=== PATIENT | female | born 1965 | race African-American/Black ===

== ENCOUNTER 2019-02-11 01:09 | Inpatient (IN) | payer SELFPAY ==
--- NOTE | 2019-02-11 03:28 | HP ---
CHIEF COMPLAINT: Transfer from [facility] for possible intracerebral hemorrhage. HISTORY OF PRESENT ILLNESS: This patient is a 53-year-old female with a history of a right breast mass lesion that has been present apparently for at least 6 months. She presented in [place] on January 04 after her boyfriend noticed the lesion and convinced her to go. At that time, it was felt to likely be cancerous in nature given that it was a large open breast mass. The patient was seen by Dr. Alvarado and had a recommendation for outpatient followup for biopsy. The patient says she did have a biopsy about a week ago and was told it was likely cancer, but it is not clear to me if the actual pathology was reviewed with her. She was supposed to follow up next week in order to see Dr. Alvarado again. She reports that she has not been eating and drinking well over the last several days and she has been somewhat lethargic and her family had her go to the emergency department again because of those symptoms. Currently, she says she is generally comfortable, has no specific complaints. She had a CT scan performed at the emergency department in [place] of the chest, which shows progressive multifocal osseous metastatic disease with T9 vertebral body metastatic lesion most at risk for impending fracture. Confluent adenopathy of the right axilla which has progressed compared to previous images with adjacent tissue invasion, right supraclavicular metastatic adenopathy, right middle lobe pulmonary metastatic nodule, right adrenal gland mass, and others. She also had a CT of the head, which revealed diffuse osseous metastatic disease with dominant destructive right frontoparietal calvarial mass, adjacent geographic metastatic lesion to the right frontal skull is larger in size. There is multifocal intra-axial metastatic disease to include the lucy which now demonstrates peripheral hyperattenuation suspicious for small component of hemorrhagic transformation. The patient's labs were also notable for severe hypercalcemia at 14.8. She was given 2 L of IV fluids, Tylenol, Toradol, Zosyn and vancomycin for it was felt to be likely cellulitic changes around the right breast mass. She was also given fentanyl and zoledronic acid (Reclast) 5 mg IV. The patient was subsequently transferred to this facility for neurosurgical evaluation. Apparently, they have discussed this with her neurosurgery team here. Already, the plan is for hydration for them to assess the patient in the morning. Review of the records indicates that the patient actually presented there complaining of some generalized pain as reported that she had not been taking her pain medications. She does report some back pain presumably related to metastatic disease. There, her labs were notable for urinalysis with specific gravity 1.025, trace ketones, 3-9 white cells, 1-2 red cells, occasional bacteria. Blood cultures were obtained and are pending. Glucose was 102, potassium 3.4. LFTs were normal. Albumin 3.2. White count 26.0, hemoglobin 10.2, platelets 630. Lactic acid was 1.5. test negative. Coags normal. Troponin 0.03. Calcium level was 14.8. Currently again, the patient actually is generally without complaints. REVIEW OF SYSTEMS: Primarily notable for the poor appetite with poor p.o. intake of liquids or solids. She does admit to having some dizziness for which she was actually seen in the emergency department on January 26. All other systems reviewed, all pertinent positives and negatives noted in the history of present illness. 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 PAST SURGICAL HISTORY: None. FAMILY HISTORY: Mother had heart failure and hypertension. Father had cancer. SOCIAL HISTORY: The patient smokes half a pack of cigarettes per day for 20 years. She reports alcohol use. She drinks half of a six-pack daily. CURRENT MEDICATIONS: Home medications apparently are only [place] 10/325 q.4 hours p.r.n. PHYSICAL EXAMINATION: VITAL SIGNS: BP 130/96, pulse 118, respirations 19, temperature is 98.4, O2 saturation 95% on room air. GENERAL APPEARANCE: Age-appropriate female. She is in no distress. She is asleep but easily awaken, very pleasant, cooperative. HEENT: She has strabismus. Pupils are reactive and she has OP lesions. NECK: Supple and symmetric without lymphadenopathy, JVD, or bruits. She does have some supraclavicular lymphadenopathy on the right. HEART: Regular rate and rhythm without murmurs, gallops, or rubs. LUNGS: Clear to auscultation bilaterally with good chest wall expansion and air exchange. ABDOMEN: Soft, nontender, and nondistended. Positive bowel sounds. No masses. No organomegaly. EXTREMITIES: No cyanosis, clubbing, or edema. BREASTS: Reveal a very large right lateral lower breast mass which is necrotic and ulcerated and foul smelling, with mostly clear foul-smelling drainage noted. There is a lot of areas of tenderness associated with this. NEUROLOGIC: The patient appears to have very mild dysarthria. She has significant proximal muscle weakness on her right upper extremity, but fairly normal strength, otherwise. IMPRESSION AND PLAN: 1. Possible cellulitic changes and infection of the right breast mass with leukocytosis. The patient has received vancomycin and Zosyn in the emergency department. We will continue those for now. We will need Wound Care to see the lesion. It is unclear that she would benefit from any aggressive surgical intervention unless it is part of an overall treatment plan or other specific indications. 2. Brain metastases with possible intracerebral hemorrhage. Apparently, Neurosurgery indicated they did not specifically want steroids at this time, they will re-evaluate the patient in the morning. We will continue to hydrate. 3. Widely metastatic cancer of obvious breast source with mets to the lungs, the adrenals, the brain, spine, and multiple other sites. The patient has not established with Oncology at this time. Her paperwork indicates that she had been referred to [facility]. We will need to determine from the patient through the course of her stay where she would like to engage in oncology care. If that is here, we will engage our oncology team. 4. Hypercalcemia secondary to metastatic disease to the bone. We will hydrate again avoiding steroids and she has already had zoledronic acid administered. 5. Right upper extremity weakness, likely secondary to spinal metastatic disease. She may need specific C-spine MRI and possible radiation therapy. We will defer that to neurosurgery discretion as this could be directly related to the brain mets as well. 6. This patient is a full code and her mother would be her surrogate decision maker should that be necessary. Job ID: [id number]
[2019-02-11] MEDS: Sodium Chloride 0.9% 1,000 ML IV SCH ×3 (03:52→18:03)
[2019-02-11 04:23] VITALS: BMI 33.5
[2019-02-11] MEDS ORDERED: Vancomycin HCl 1 GM in Premix Bag 1 BAG IVPB SCH ×2 (04:30→06:00)
[2019-02-11] MEDS ORDERED: Piperacillin/Tazobactam 3.375 GM in Sodium Chloride 0.9% 100 ML IVPB SCH (04:30)
[2019-02-11 05:20] LABS: #Basophils 0.1 thou/uL (0.0-0.2); #Eosinphils 0.1 thou/uL (0.0-0.7); #Lymphocytes 2.2 thou/uL (1.20-3.40); #Monocytes 1.5 thou/uL (0.11-0.59); #Neutrophils 14.2 thou/uL (1.40-6.50); %Basophils 0.3 % (0.0-1.0); %Eosinophils 0.8 % (0.0-10.0); %Lymphocytes 12.2 % (21.0-51.0); %Neutrophils 78.7 % (42.0-75.0); Hemoglobin 8.3 g/dL (12.0-16.0); Mean Corpuscular HGB CONC 32.2 g/dL (32.0-36.0); Mean Platelet Volume 8.1 fL (7.4-10.4); Platelet Count 442 thou/uL (130-400); Red Blood Cell (RBC) Count 2.96 mill/uL (4.20-5.40)
[2019-02-11 05:39] LABS: ALT (SGPT) 7 U/L (8-55); AST (SGOT) 25 U/L (5-34); Albumin 2.3 g/dL (3.5-5.0); Alkaline Phosphatase 110 U/L (40-150); Anion Gap 11 mmol/L (10-20); BUN (Urea Nitrogen) 18 mg/dL (9.8-20.1); Bilirubin, Total 0.8 mg/dL (0.2-1.2); Calc. Creatinine Clearance 111 mL/min (70-130); Carbon Dioxide 23 mmol/L (22-29); Chloride 108 mmol/L (98-107); Estimated GFR-MDRD 90; Globulin 3.4 g/dL (2.4-3.5); Glucose 94 mg/dL (70-105); Potassium 3.1 mmol/L (3.5-5.1); Protein, Total 5.7 g/dL (6.0-8.3); Sodium 139 mmol/L (136-145)
[2019-02-11 05:41] LABS: Calcium 12.4 mg/dL (7.8-10.44)
[2019-02-11 06:19] LABS: Anion Gap 15 mmol/L (10-20); BUN (Urea Nitrogen) 18 mg/dL (9.8-20.1); Calc. Creatinine Clearance 116 mL/min (70-130); Carbon Dioxide 20 mmol/L (22-29); Chloride 108 mmol/L (98-107); Estimated GFR-MDRD Greater than 90; Glucose 77 mg/dL (70-105); Potassium 3.5 mmol/L (3.5-5.1); Sodium 139 mmol/L (136-145)
[2019-02-11 06:25] LABS: Calcium 12.3 mg/dL (7.8-10.44)
[2019-02-11] MEDS: Famotidine/PF 20 mg/2ml Vial SLOW IVP SCH ×2 (09:06→23:23)
[2019-02-11] MEDS: Piperacillin/Tazobactam 3.375 GM in Sodium Chloride 0.9% 100 ML IVPB SCH ×3 (11:33→23:25)
[2019-02-11] MEDS: Morphine 2 MG/ML SYRINGE SLOW IVP PRN ×2 (11:49→23:23)
--- NOTE | 2019-02-11 12:46 | PDOC.PALCO ---
Palliative Care Consult - Consult Details Requesting Physician: Dr Atwood Reason for Consult: complex decision-making Family Members Present: None - Pertinent HPI Ms Kuo is a 53 year old female who was diagnosed with that had a biopsy of a open wound to the right breast that is believed to be cancerous however patient has not been given the pathology report. Patient presented to the emergency department yesterday with altered mental status and increase in sleep pattern. CT in the emergency department in [place] revealed what is believed to be a progressive multifocal osseous metastatic disease. Cellulitis and UTI. Patient admitted for further evaluation. Palliative Care Team evaluated for Complex Decisions Making. - Pertinent PMH Hypertension, cataracts, chronic right eye blindness, obesity, cervical radiculopathy - Social History Smoking Status: Current every day smoker Smoking: cigarettes Alcohol Use: daily Drug Use History: none - Medications MAR Reviewed: Yes - Allergies Allergies/Adverse Reactions: Allergies Allergy/AdvReac Type Severity Reaction Status Date / Time No Known Drug Allergies Allergy Verified 02/11/19 03:16 - Subjective Paitent sleeping, easily arousable. Lethargic. Denies specific pain, reports limited movement and numbness to right hand/foot. ROS: all other systems negative as per patient - Objective Vital Signs: Vital Signs - Most Recent Temp Pulse Resp BP Pulse Ox 99.3 F 125 H 18 173/85 H 98 02/11/19 11:38 02/11/19 11:38 02/11/19 11:38 02/11/19 11:38 02/11/19 11:38 Palliative Performance Scale: 30 - Physical Exam Constitutional: confusion Respiratory: clear to auscultation bilateral, unlabored breathing Cardiovascular: RRR Deviation from normal: Tachycardia Gastrointestinal: soft, non-tender Musculoskeletal: no edema Deviation from normal: Decreased strength to right hand Deviation from normal: Decreased sensation to right extremities as per patietn Deviation from normal: Lethargic Deviation from normal: Open wound to right breast - Problem List (1) Palliative care encounter Code(s): Z51.5 - ENCOUNTER FOR PALLIATIVE CARE Current Visit: Yes Status: Acute - Plan/Recommendations Plan: Initiated conversation with patient in relation to Palliative Care and establish relationship. Our team will continue to follow as other disciplines provide information and disease progression/trajectory to Ms Kuo. [40] minutes spent on this encounter with >50% of the time in counseling and coordination of care. Thank you for this very appropriate consult.
--- NOTE | 2019-02-11 15:46 | PDOC.HOSPP ---
- Subjective Subjective: f/u for widely metastatic R breast cancer untreated to date. s/p R breast bx without formal path results. Pain improved. - Objective Vital Signs & Weight: Vital Signs (12 hours) Temp Pulse Resp BP Pulse Ox 02/11/19 12:47 114 H 18 149/74 H 02/11/19 11:38 99.3 F 125 H 18 173/85 H 98 02/11/19 09:00 97 02/11/19 07:59 99.8 F H 107 H 18 149/89 H 97 Weight Admit Weight 189 lb 3.2 oz Weight 189 lb 3.2 oz I&O: 02/10/19 02/11/19 02/12/19 06:59 06:59 06:59 Intake Total 550 120 Output Total 600 Balance -50 120 Result Diagrams: 02/11/19 04:54 02/11/19 05:59 Additional Labs: Laboratory Tests 02/11/19 04:54 Potassium 3.1 L Calcium 12.4 H* EKG Reviewed by me: Yes (Tele - Sinus tachycardia) ROS - Review of Systems All systems: All other ROS were reviewed and found negative. - Medication Medications: Active Medications Generic Name Dose Route Start Last Admin Trade Name Freq PRN Reason Stop Dose Admin Famotidine 20 mg 02/11/19 09:00 02/11/19 09:06 Pepcid SLOW IVP 20 mg Q12HR CHLOÉ Administration Piperacillin Sod/Tazobactam 100 mls @ 200 mls/hr 02/11/19 11:00 02/11/19 11: 33 Sod 3.375 gm/ Sodium Chloride IVPB 100 mls Q6H CHLOÉ Administration Sodium Chloride 1,000 mls @ 75 mls/hr 02/11/19 02:45 02/11/19 03:52 Normal Saline 0.9% IV 1,000 mls .[id number] CHLOÉ Administration Morphine Sulfate 2 mg 02/11/19 02:43 02/11/19 11:49 Morphine SLOW IVP 2 mg Q4H PRN Administration Moderate to Severe Pain (6-10) Sodium Chloride 10 ml 02/11/19 09:00 02/11/19 11:34 Flush - Normal Saline IVF 10 ml Q12HR CHLOÉ Administration - Exam NAD, awake alert Eye: PERRL, anicteric sclera ENT: normocephalic atraumatic, no oropharyngeal lesions Neck: supple, no JVD, no Thyromegaly (+ lymphadenopathy) Heart: no murmur, no gallops, no rubs, normal peripheral pulses (tachycardic) Respiratory: CTAB, no wheezes, no rales, no ronchi Gastrointestinal: soft, non-tender, non-distended, normal bowel sounds Extremities: no cyanosis, no clubbing, no edema Skin: tenting (Necrotic, advanced open R breast mass with destruction of normal architecture) Neurological: CN's grossly intact, facial droop, vision deficit Psychiatric: normal behavior, A&O x 3 Hosp A/P (1) Metastatic breast carcinoma Code(s): C50.919 - MALIGNANT NEOPLASM OF UNSP SITE OF UNSPECIFIED FEMALE BREAST Status: Acute Plan: Widely metastatic process with advanced Stage IV breast carcinoma untreated with recent bx, likely palliative measures at this point due to the advanced nature, consult med oncology for any further recommendations, pain control (2) Hypercalcemia Code(s): E83.52 - HYPERCALCEMIA Status: Acute Plan: Secondary to #1, continue IVF's, serial Ca++ (3) Hypokalemia Code(s): E87.6 - HYPOKALEMIA Status: Acute Plan: Improved, KCL supplementation (4) Normocytic anemia Code(s): D64.9 - ANEMIA, UNSPECIFIED Status: Chronic Plan: Likely chronic given presentation, no active blood loss noted, serial H/H - Plan plan discussed w/ family, continue antibiotics, clinical social worker, DVT proph w/ SCDs Consults: Palliative Care Discussed at length with pt and family regarding metastatic process, Palliative care consulted Continue IVF's Pain control regimen Consult Medical Oncology Likely hospice at discharge AM lab: BMP, CBC Transfer to Oncology floor
--- NOTE | 2019-02-11 16:33 | PDOC.FMACP ---
Advance Care Planning - Problem (1) Metastatic breast carcinoma Status: Acute Code(s): C50.919 - MALIGNANT NEOPLASM OF UNSP SITE OF UNSPECIFIED FEMALE BREAST (2) Hypercalcemia Status: Acute Code(s): E83.52 - HYPERCALCEMIA (3) Hypokalemia Status: Acute Code(s): E87.6 - HYPOKALEMIA (4) Normocytic anemia Status: Chronic Code(s): D64.9 - ANEMIA, UNSPECIFIED - Note Participants: patient, family Summary: Advanced Care Planning was discussed. The diagnosis, prognosis and goals of care were discussed. Appropriate forms and documentation to accomplish the goals of care were discussed. All questions were answered. The Palliative Care Team will be engaged to assist with completion of any outstanding forms that are needed. Discussed current metastatic breast cancer and the advanced nature. Family contemplating options and considering transition to home once stabilized. Consider palliative/hospice care but unsure currently. Pain control/comfort is goal for short term. Code status full currently. Time Spent (mins): 25
[2019-02-11] MEDS: Vancomycin HCl 1 GM in Premix Bag 1 BAG IVPB SCH (19:45)
[2019-02-11] MEDS ORDERED: Ondansetron ODT 4 MG TAB PO PRN (21:25)
[2019-02-11] MEDS ORDERED: Ondansetron PF 4 MG/2 ML Vial IVP PRN (21:25)
[2019-02-11] MEDS ORDERED: traMADol HCl 50 MG TAB PO PRN (21:25)
--- NOTE | 2019-02-11 23:48 | CON ---
DATE OF CONSULTATION: 02/11/2019 HISTORY OF PRESENT ILLNESS: Ms. Kuo is a 53-year-old female who admits that she had a breast mass for the last several years and most recently presented as an outpatient in late December in [place] to a wound care physician for a biopsy. This was proven to be breast cancer, but we do not know the type. The wound had gotten so large on her breast and had invaded under the nipple and was draining. She presents today because the area had gotten erythematous and red and quite painful, and also because of increasing weakness and fatigue, the family admits that she has been in the bed for the last couple of weeks. She barely ambulates. She is not eating or drinking. On admission here, she is found to have metastatic disease to brain, adrenal glands, and lungs. The patient does state that she is considering care, but not sure if she wants care here. She does not want to be a DNR at this time. She is alert, awake, and oriented x3, but is somewhat somnolent during the interview. Most of the history is taken from her family. PAST MEDICAL HISTORY: 1. Hypertension. 2. Cataracts. 3. Chronic right eye blindness with related strabismus. 4. Obesity. 5. Cervical radiculopathy. ALLERGIES: NO KNOWN DRUG ALLERGIES. SOCIAL HISTORY: She is here with several family members and has a boyfriend. She does admit to occasional tobacco and alcohol use. REVIEW OF SYSTEMS: Otherwise, her review of systems is positive for arm pain and back pain. She has some swelling in her neck. She is somewhat confused and slurring her speech, but states most of the time she is with it. No fevers or chills. She has lost some weight. PHYSICAL EXAMINATION: VITAL SIGNS: Temperature 99.4, pulse 117, respirations 16, O2 saturation 98% on room air, blood pressure 145/86. GENERAL: She is alert, awake, and oriented x3, but is somewhat somnolent. HEENT: Extraocular muscles appear to be intact with the exception of the right eye strabismus. NECK: Supple. She does have bilateral supraclavicular lymphadenopathy noted. LUNGS: Clear to auscultation. ABDOMEN: Hypoactive bowel sounds. Soft, nontender, and nondistended. EXTREMITIES: No edema. BREASTS: Her right breast has a mass that has a fungating wound with an associated mass and some surrounding erythema with a serous drainage, it does have an odor. LABORATORY DATA: White blood cell count 18, hemoglobin 8.3, platelets 442. Sodium 139, potassium 3.5, chloride 108, CO2 of 20, BUN 18, creatinine 0.7, glucose 77, calcium 12.3. ASSESSMENT: Ms. Kuo is a 53-year-old female with, 1. Metastatic breast cancer to brain, adrenal glands, lungs, and supraclavicular area. 2. Somnolence secondary to brain metastases. 3. Pain secondary to right breast mass. 4. Uninsured. PLAN: 1. I discussed with she and her family diagnosis and prognosis. They understand this is incurable, and at this point, it may in fact not even be treatable given her overall condition. 2. I would recommend IV steroids and a discussion with Radiation Oncology, if we decide to not move forward with treatment, she will not need radiation. 3. I would recommend a palliative care consult and that we consider hospice care as I do not think the patient is interested in treatment at this time. 4. I would recommend a DNR, although the patient has declined this and currently remains a full code. 5. We will get the results of the biopsy done by Dr. Alvarado to decide if an aromatase inhibitor or tamoxifen might be helpful if she decides to move forward with treatment . Job ID: [id number]
--- NOTE | 2019-02-12 01:32 | CON ---
DATE OF CONSULTATION: This is Amarjit Osborne PA-C dictating a report for Dom Kendrick MD. This is a 50-minute initial patient evaluation in which greater than 50% of the exam was spent counseling and coordinating the patient's care. Remainder of the exam was spent in review of patient's medical records, review of appropriate imaging studies and formulation of treatment plan. CHIEF COMPLAINT: Altered mental status with right arm weakness. HISTORY OF PRESENT ILLNESS: Ms. Kuo is a pleasant 53-year-old female who presented originally to [facility] in [place] with the above complaints. A head CT was obtained that showed a large left frontal parietal mass as well as a hemorrhagic component of a pontine lesion concerning for metastatic cancer. Apparently, the patient was diagnosed with breast cancer in late December of 2018, and the patient delayed her oncology appointment for unknown reasons. Nonetheless, she had a breast abscess and re-presented to the emergency room multiple times in January. Nonetheless, the patient had some altered mental status in which she was lethargic and having headache and a head CT was obtained as described above. Neurosurgery was consulted and both Dr. Kendrick and I reviewed the patient's imaging and given the location of the pontine lesion, this was deemed inoperable. I should also note that the left frontal parietal lesion has infiltrated the skull at that area. The patient was also found to have hypercalcemia and when this was corrected in the ER, her mentation improved. Currently the patient complains of headache. She also notes that her right-sided weakness has actually been going on longer than what she thought in the ER. This has been going on for the past 6 to 8 weeks. She states she has fallen once, but does not note significant weakness into the right leg. On physical exam the patient is awake, alert, and appropriate. She has lateral and downward directed right eye, but also has a cataract. This pupil is very minimally, if at all reactive and is around 4 mm in size. The left eye is 4 mm in size and is reactive. The patient notes some blurred vision in the right eye, but does not appear to have any visual field deficit in the left eye on confrontation. She does, however, have a nystagmus more clearly in the left eye. She has profound weakness into the right upper extremity with moderate weakness into the right lower extremity. She is antigravity and appears to have mild weakness into the right dorsiflexion and plantar flexion on the right. She has good strength in the left arm and left leg. She is oriented to person, place, and time. GCS is 15. IMPRESSION AND DIAGNOSES: 1. Altered mental status with metastatic brain lesions. 2. Left frontal parietal brain lesion with extension into the skull. 3. Pontine lesion with a hemorrhagic component. 4. Primary diagnosis of breast cancer. 5. Tobacco abuse as the patient is a daily smoker. 6. Hypercalcemia, improving. PLAN: At this time, I have again discussed the patient's case and imaging with Dr. Kendrick. Unfortunately, the patient's prognosis is very grim. I have discussed with the patient and her family who are at bedside that the pontine lesion is inoperable and therefore palliative care and Oncology will be helping with treatments. I have also let the patient know that there is no neurosurgery that will not be helpful in resecting these lesions. She stated her understanding and is appreciative of our care as was her family. We will defer the any type of further treatment to Oncology and palliative care needs to be consulted to help with the patient's grim prognosis. At this time, Neurosurgery will sign off. Please call with any questions. Job ID: [id number]
[2019-02-12 05:09] LABS: Anion Gap 11 mmol/L (10-20); BUN (Urea Nitrogen) 10 mg/dL (9.8-20.1); Calc. Creatinine Clearance 127 mL/min (70-130); Calcium 11.3 mg/dL (7.8-10.44); Carbon Dioxide 23 mmol/L (22-29); Chloride 107 mmol/L (98-107); Estimated GFR-MDRD Greater than 90; Glucose 80 mg/dL (70-105); Sodium 138 mmol/L (136-145)
[2019-02-12] MEDS: Piperacillin/Tazobactam 3.375 GM in Sodium Chloride 0.9% 100 ML IVPB SCH ×4 (05:10→23:39)
[2019-02-12 05:13] LABS: Potassium 2.8 mmol/L (3.5-5.1)
[2019-02-12] MEDS ORDERED: Potassium Chloride 20 MEQ in Premix Bag 1 BAG IVPB SCH (06:00)
[2019-02-12] MEDS: Vancomycin HCl 1 GM in Premix Bag 1 BAG IVPB SCH ×2 (06:09→18:21)
[2019-02-12] MEDS: Famotidine/PF 20 mg/2ml Vial SLOW IVP SCH ×2 (08:12→21:29)
--- NOTE | 2019-02-12 15:48 | PDOC.HOSPP ---
- Subjective Subjective: f/u for metastatic breast carcinoma with intracranial lesions and small hemorrhage associated. States feeling weak but overall slightly imporved. Pain controlled currently. - Objective Vital Signs & Weight: Vital Signs (12 hours) Temp Pulse Resp BP Pulse Ox 02/12/19 12:05 98.3 F 102 H 18 136/84 100 02/12/19 08:00 97 02/12/19 07:50 99.2 F 108 H 20 142/88 H 97 Weight Admit Weight 189 lb 3.2 oz Weight 189 lb 3.2 oz I&O: 02/11/19 02/12/19 02/13/19 06:59 06:59 06:59 Intake Total 550 3005 Output Total 600 1275 Balance -50 1730 Result Diagrams: 02/11/19 04:54 02/13/19 05:06 Additional Labs: Laboratory Tests 02/11/19 04:54 Potassium 3.1 L Calcium 12.4 H* ROS - Review of Systems All systems: All other ROS were reviewed and found negative. - Medication Medications: Active Medications Generic Name Dose Route Start Last Admin Trade Name Freq PRN Reason Stop Dose Admin Famotidine 20 mg 02/11/19 09:00 02/12/19 08:12 Pepcid SLOW IVP 20 mg Q12HR CHLOÉ Administration Piperacillin Sod/Tazobactam 100 mls @ 200 mls/hr 02/11/19 11:00 02/12/19 11: 55 Sod 3.375 gm/ Sodium Chloride IVPB 100 mls Q6H CHLOÉ Administration Vancomycin HCl 1 gm/ Device 200 mls @ 200 mls/hr 02/11/19 18:00 02/12/19 06: 09 IVPB 200 mls 0600,1800 CHLOÉ Administration Sodium Chloride 1,000 mls @ 100 mls/hr 02/11/19 16:00 02/11/19 18:03 Normal Saline 0.9% IV 1,000 mls .Q10H CHLOÉ Administration Morphine Sulfate 2 mg 02/11/19 02:43 02/11/19 23:23 Morphine SLOW IVP 2 mg Q4H PRN Administration Moderate to Severe Pain (6-10) Sodium Chloride 10 ml 02/11/19 09:00 02/12/19 08:19 Flush - Normal Saline IVF 10 ml Q12HR CHLOÉ Administration - Exam awake alert, ill appearing Eye: PERRL, anicteric sclera ENT: normocephalic atraumatic, no oropharyngeal lesions Neck: supple, symmetric, no JVD, no Thyromegaly Heart: RRR, no murmur, no gallops, no rubs Respiratory: CTAB, no wheezes, no rales, no ronchi Gastrointestinal: soft, non-tender, non-distended, normal bowel sounds Extremities: no cyanosis, no edema Neurological: facial droop, hemiplegia (R facial palsy, R hemiparesis) Psychiatric: oriented to person, oriented to place Hosp A/P (1) Metastatic breast carcinoma Code(s): C50.919 - MALIGNANT NEOPLASM OF UNSP SITE OF UNSPECIFIED FEMALE BREAST Status: Acute Plan: Plan for palliative measures currently given the advanced nature of the breast cancer, Hospice/Palliative consulted (2) Hypercalcemia Code(s): E83.52 - HYPERCALCEMIA Status: Acute Plan: Improved with IVF's, continue IVF's another 24h (3) Hypokalemia Code(s): E87.6 - HYPOKALEMIA Status: Acute Plan: KCL supplementation, serial K+ monitoring (4) Normocytic anemia Code(s): D64.9 - ANEMIA, UNSPECIFIED Status: Chronic Plan: Stable currently, serial monitoring (5) Right hemiplegia Code(s): G81.91 - HEMIPLEGIA, UNSPECIFIED AFFECTING RIGHT DOMINANT SIDE Status : Acute Plan: Secondary to brain metastasis, no tx indicated, supportive - Plan plan discussed w/ family, continue antibiotics, PT/OT, executive secretary social welfare, DVT proph w/SCDs Consults: Palliative Care Continue supportive mgmt Continue IVF's Continue Vancomycin/Zosyn Pain control as clinically indicated Palliative/Med Oncology consult appreciated AM lab: BMP
[2019-02-12] MEDS: Sodium Chloride 0.9% 1,000 ML IV SCH ×2 (16:03→17:18)
[2019-02-12] MEDS: Morphine 2 MG/ML SYRINGE SLOW IVP PRN (23:39)
[2019-02-13] MEDS: Sodium Chloride 0.9% 1,000 ML IV SCH ×4 (03:00→21:56)
[2019-02-13] MEDS: Piperacillin/Tazobactam 3.375 GM in Sodium Chloride 0.9% 100 ML IVPB SCH ×4 (04:47→22:01)
[2019-02-13 05:38] LABS: Vancomycin, Trough 19.3 ug/mL
[2019-02-13 05:40] LABS: Anion Gap 10 mmol/L (10-20); BUN (Urea Nitrogen) 5 mg/dL (9.8-20.1); Calc. Creatinine Clearance 137 mL/min (70-130); Calcium 9.9 mg/dL (7.8-10.44); Carbon Dioxide 23 mmol/L (22-29); Chloride 107 mmol/L (98-107); Estimated GFR-MDRD Greater than 90; Glucose 90 mg/dL (70-105); Sodium 137 mmol/L (136-145)
[2019-02-13 05:42] LABS: Potassium 2.7 mmol/L (3.5-5.1)
[2019-02-13] MEDS ORDERED: Potassium Chloride 40 MEQ in Sodium Chloride 0.9% 250 ML 250 ML IVPB SCH (06:00)
[2019-02-13] MEDS: Vancomycin HCl 1 GM in Premix Bag 1 BAG IVPB SCH ×2 (06:05→18:01)
[2019-02-13] MEDS: Famotidine/PF 20 mg/2ml Vial SLOW IVP SCH ×2 (08:07→20:45)
--- NOTE | 2019-02-13 14:49 | PDOC.HOSPP ---
- Subjective Subjective: f/u for metastatic breast carcinoma with brain involvement. Plan for hospice care at discharge. Feels a little better overall but appetite decreased. - Objective Vital Signs & Weight: Vital Signs (12 hours) Temp Pulse Resp BP Pulse Ox 02/13/19 08:05 98.5 F 95 18 167/90 H 95 02/13/19 08:00 95 02/13/19 04:00 98.7 F 106 H 16 135/85 93 L Weight Admit Weight 189 lb 3.2 oz Weight 189 lb 3.2 oz I&O: 02/12/19 02/13/19 02/14/19 06:59 06:59 06:59 Intake Total 3005 2900 Output Total 1275 1400 Balance 1730 1500 Result Diagrams: 02/11/19 04:54 02/13/19 05:06 Additional Labs: Laboratory Tests 02/11/19 04:54 Potassium 3.1 L Calcium 12.4 H* ROS - Review of Systems All systems: All other ROS were reviewed and found negative. - Medication Medications: Active Medications Generic Name Dose Route Start Last Admin Trade Name Freq PRN Reason Stop Dose Admin Famotidine 20 mg 02/11/19 09:00 02/13/19 08:07 Pepcid SLOW IVP 20 mg Q12HR CHLOÉ Administration Piperacillin Sod/Tazobactam 100 mls @ 200 mls/hr 02/11/19 11:00 02/13/19 11: 37 Sod 3.375 gm/ Sodium Chloride IVPB 100 mls Q6H CHLOÉ Administration Vancomycin HCl 1 gm/ Device 200 mls @ 200 mls/hr 02/11/19 18:00 02/13/19 06: 05 IVPB 200 mls 0600,1800 CHLOÉ Administration Sodium Chloride 1,000 mls @ 100 mls/hr 02/11/19 16:00 02/13/19 04:47 Normal Saline 0.9% IV 1,000 mls .Q10H CHLOÉ Administration Morphine Sulfate 2 mg 02/11/19 02:43 02/12/19 23:39 Morphine SLOW IVP 2 mg Q4H PRN Administration Moderate to Severe Pain (6-10) Sodium Chloride 10 ml 02/11/19 09:00 02/13/19 08:12 Flush - Normal Saline IVF 10 ml Q12HR CHLOÉ Administration - Exam awake alert, ill appearing Eye: PERRL, anicteric sclera ENT: normocephalic atraumatic, no oropharyngeal lesions Neck: supple, symmetric, no JVD, no Thyromegaly Heart: RRR, no murmur, no gallops, no rubs, normal peripheral pulses Respiratory: CTAB, no wheezes, no rales, no ronchi Gastrointestinal: soft, non-tender, non-distended, normal bowel sounds Extremities: no cyanosis (RUE edema noted) Neurological: facial droop, hemiplegia, vision deficit Psychiatric: oriented to person, oriented to place Hosp A/P (1) Metastatic breast carcinoma Code(s): C50.919 - MALIGNANT NEOPLASM OF UNSP SITE OF UNSPECIFIED FEMALE BREAST Status: Acute Plan: Plan for palliative/hospice care at discharge, advanced, end-stage carcinoma, continue supportive mgmt, pain control (2) Hypercalcemia Code(s): E83.52 - HYPERCALCEMIA Status: Acute Plan: Improved with IVF's, decrease IVF's 75ml/h (3) Hypokalemia Code(s): E87.6 - HYPOKALEMIA Status: Acute Plan: Persistent, Klor-Con 40meq BID, repeat K+ level in am (4) Normocytic anemia Code(s): D64.9 - ANEMIA, UNSPECIFIED Status: Chronic Plan: Stable currently, no active bleeding (5) Right hemiplegia Code(s): G81.91 - HEMIPLEGIA, UNSPECIFIED AFFECTING RIGHT DOMINANT SIDE Status : Acute Plan: Persistent due brain metastasis - Plan plan discussed w/ family, continue antibiotics, PT/OT, high school social studies tutor, DVT proph w/SCDs Consults: Hospice, Palliative Care Continue supportive mgmt Decrease IVF 75ml/h Klor Con 40meq BID Palliative/Hospice care at d/c Continue IV Vanc/Zosyn AM lab: BMP
[2019-02-13] MEDS: Morphine 2 MG/ML SYRINGE SLOW IVP PRN (20:44)
[2019-02-14] MEDS: Sodium Chloride 0.9% 1,000 ML IV SCH ×2 (00:49→17:32)
[2019-02-14] MEDS: Piperacillin/Tazobactam 3.375 GM in Sodium Chloride 0.9% 100 ML IVPB SCH ×2 (06:00→17:31)
[2019-02-14] MEDS: Vancomycin HCl 1 GM in Premix Bag 1 BAG IVPB SCH (06:02)
[2019-02-14 06:36] LABS: Anion Gap 10 mmol/L (10-20); BUN (Urea Nitrogen) Less than 4 mg/dL (9.8-20.1); Calc. Creatinine Clearance 148 mL/min (70-130); Calcium 9.2 mg/dL (7.8-10.44); Carbon Dioxide 23 mmol/L (22-29); Chloride 107 mmol/L (98-107); Estimated GFR-MDRD Greater than 90; Glucose 96 mg/dL (70-105); Sodium 137 mmol/L (136-145)
[2019-02-14] MEDS: Morphine 2 MG/ML SYRINGE SLOW IVP PRN (09:34)
--- NOTE | 2019-02-14 09:45 | PRG ---
DATE OF SERVICE: 02/12/2019 I came to see Ms. Kuo this morning, but the door to room was locked, and I suspected a family meeting or perhaps a midlife discussion was on going and as such, I did not interrupt; nevertheless, there was a confusion regarding while the patient was transferred to [place]. Neurosurgical Team was consulted when she was at the [facility] Emergency Room, I reviewed her imaging and the clinical case and recommended against any neurosurgical intervention but rather palliative care. For some reason, however, she was transferred to [place] as there was misinformation that Neurosurgery requested this, this is erroneous; nevertheless extensive discussion with the patient yesterday. Condition is inoperable, and I have recommended palliative care. Job ID: [id number]
[2019-02-14] MEDS: Famotidine/PF 20 mg/2ml Vial SLOW IVP SCH (10:38)
[2019-02-14] MEDS ORDERED: HYDROcodone/Acetaminophen 7.5/325 mg Tablet PO PRN (14:08)
--- NOTE | 2019-02-14 14:14 | PDOC.HOSPP ---
- Subjective Subjective: f/u for advanced, metastatic breast carcinoma with hypercalcemia. Feels mentally clearer overall and tolerating small amounts of liquids. - Objective Vital Signs & Weight: Vital Signs (12 hours) Temp Pulse Resp BP BP Pulse Ox 02/14/19 12:39 141/91 H 02/14/19 08:35 99.1 F 109 H 18 187/102 H 97 Weight Admit Weight 189 lb 3.2 oz Weight 189 lb 3.2 oz I&O: 02/13/19 02/14/19 02/15/19 06:59 06:59 06:59 Intake Total 2900 3200 Output Total 1400 2800 Balance 1500 400 Result Diagrams: 02/11/19 04:54 02/14/19 05:28 Additional Labs: Laboratory Tests 02/11/19 02/11/19 02/12/19 04:54 05:59 04:19 Potassium 3.1 L Calcium 12.4 H* 12.3 H* 11.3 H 02/13/19 05:06 Potassium Calcium 9.9 ROS - Review of Systems All systems: All other ROS were reviewed and found negative. - Medication Medications: Active Medications Generic Name Dose Route Start Last Admin Trade Name Freq PRN Reason Stop Dose Admin Famotidine 20 mg 02/11/19 09:00 02/14/19 10:38 Pepcid SLOW IVP Not Given Q12HR CHLOÉ Morphine Sulfate 2 mg 02/11/19 02:43 02/14/19 09:34 Morphine SLOW IVP 2 mg Q4H PRN Administration Moderate to Severe Pain (6-10) Potassium Chloride 40 meq 02/13/19 17:00 02/14/19 09:34 Klor-Con PO 40 meq BID-WM CHLOÉ Administration Sodium Chloride 10 ml 02/11/19 09:00 02/14/19 09:38 Flush - Normal Saline IVF 10 ml Q12HR CHLOÉ Administration - Exam NAD, awake alert Eye: anicteric sclera ENT: normocephalic atraumatic, no oropharyngeal lesions, moist mucosa Neck: supple, symmetric, no JVD, no Thyromegaly Heart: RRR, no murmur, no gallops, no rubs, normal peripheral pulses Respiratory: CTAB, no wheezes, no rales, no ronchi, normal chest expansion Gastrointestinal: soft, non-tender, non-distended, normal bowel sounds Extremities: no cyanosis, no edema Skin: normal turgor Neurological: CN's grossly intact, facial droop, hemiplegia, vision deficit Musculoskeletal: generalized weakness Psychiatric: A&O x 3 Hosp A/P (1) Metastatic breast carcinoma Code(s): C50.919 - MALIGNANT NEOPLASM OF UNSP SITE OF UNSPECIFIED FEMALE BREAST Status: Acute Plan: Advanced, end-stage process without tx options, discussed with pt who is willing to pursue hospice/comfort care. Consulted Hospice for coordination of outpt care (2) Hypercalcemia Code(s): E83.52 - HYPERCALCEMIA Status: Acute Plan: Improved with IVF's, will d/c IVF's as pt tolerating po intake (3) Hypokalemia Code(s): E87.6 - HYPOKALEMIA Status: Acute Plan: Mild improvement, continue KCL supplementation (4) Normocytic anemia Code(s): D64.9 - ANEMIA, UNSPECIFIED Status: Chronic (5) Right hemiplegia Code(s): G81.91 - HEMIPLEGIA, UNSPECIFIED AFFECTING RIGHT DOMINANT SIDE Status : Acute - Plan PT/OT, social science manager, DVT proph w/SCDs Consults: Palliative Care Stable currently Continue supportive mgmt Add [place] 7.5mg Q4h prn pain Add Lidocaine patch 5% TD daily Code Status: DNAR Consult Hospice Likely home in 24h
[2019-02-14] MEDS: Lidocaine 5% Patch TD SCH (17:06)
[2019-02-14] MEDS: HYDROcodone/Acetaminophen 7.5/325 mg Tablet PO PRN (17:15)
--- NOTE | 2019-02-14 19:05 | PDOC.FMACP ---
Advance Care Planning - Problem (1) Metastatic breast carcinoma Status: Acute Code(s): C50.919 - MALIGNANT NEOPLASM OF UNSP SITE OF UNSPECIFIED FEMALE BREAST (2) Hypercalcemia Status: Acute Code(s): E83.52 - HYPERCALCEMIA (3) Hypokalemia Status: Acute Code(s): E87.6 - HYPOKALEMIA (4) Normocytic anemia Status: Chronic Code(s): D64.9 - ANEMIA, UNSPECIFIED (5) Right hemiplegia Status: Acute Code(s): G81.91 - HEMIPLEGIA, UNSPECIFIED AFFECTING RIGHT DOMINANT SIDE - Note Participants: patient Summary: Advanced Care Planning was discussed. The diagnosis, prognosis and goals of care were discussed. Appropriate forms and documentation to accomplish the goals of care were discussed. All questions were answered. The Palliative Care Team will be engaged to assist with completion of any outstanding forms that are needed. Discussed with patient that there is no treatment option given the advanced nature of the cancer. Pt verbalizes understanding and wishes to pursue comfort/hospice care at home. She understands the goal is her comfort and not treatment or any hope of a cure. Pt desires to be DNAR code status and has designated her MPOA. Pt verbalized her understanding of the clinical situation. Time Spent (mins): 25
[2019-02-15] MEDS: HYDROcodone/Acetaminophen 7.5/325 mg Tablet PO PRN ×2 (05:24→20:15)
[2019-02-15] MEDS: Lidocaine Patch Removal 1 EACH TOP SCH (05:40)
[2019-02-15] MEDS ORDERED: Acetaminophen 500 MG TAB PO PRN (09:32)
[2019-02-15] MEDS: Ibuprofen 800 MG TAB PO PRN (10:00)
--- NOTE | 2019-02-15 16:13 | PDOC.HOSPP ---
- Subjective Subjective: f/u for advanced, end-stage metastatic breast carcinoma, family wishing to pursue second opinion regarding her disease and tx options. - Objective Vital Signs & Weight: Vital Signs (12 hours) Temp Pulse Resp BP Pulse Ox 02/15/19 11:27 98.2 F 111 H 16 124/75 75 L 02/15/19 07:30 101.8 F H 124 H 16 116/76 94 L Weight Admit Weight 189 lb 3.2 oz Weight 189 lb 3.2 oz I&O: 02/14/19 02/15/19 02/16/19 06:59 06:59 06:59 Intake Total 3200 Output Total 2800 800 Balance 400 -800 Result Diagrams: 02/11/19 04:54 02/14/19 05:28 ROS - Review of Systems All systems: All other ROS were reviewed and found negative. - Medication Medications: Active Medications Generic Name Dose Route Start Last Admin Trade Name Freq PRN Reason Stop Dose Admin Ibuprofen 800 mg 02/15/19 09:33 02/15/19 10:00 Motrin PO 800 mg Q8H PRN Administration Pain Lidocaine 2 patch 02/14/19 17:00 02/14/19 17:06 Lidoderm 5% Patch TD 2 patch 1700 CHLOÉ Administration Miscellaneous Medication 1 each 02/15/19 05:00 02/15/19 05:40 Lidocaine Patch Removal TOP Not Given 0500 CHLOÉ Potassium Chloride 40 meq 02/13/19 17:00 02/15/19 10:07 Klor-Con PO 40 meq BID-WM CHLOÉ Administration - Exam NAD, awake alert ENT: normocephalic atraumatic, no oropharyngeal lesions Neck: supple, symmetric, no JVD, no Thyromegaly Heart: RRR, no murmur, no gallops, no rubs, normal peripheral pulses Respiratory: CTAB, no wheezes, no rales, no ronchi Gastrointestinal: soft, non-tender, non-distended, normal bowel sounds Extremities: no cyanosis Skin: normal turgor Neurological: no new deficit Psychiatric: oriented to person, oriented to place, oriented to time Hosp A/P (1) Metastatic breast carcinoma Code(s): C50.919 - MALIGNANT NEOPLASM OF UNSP SITE OF UNSPECIFIED FEMALE BREAST Status: Acute Plan: End-stage process widely metastatic, family/pt wanting to pursue another opinion regarding tx options (2) Hypercalcemia Code(s): E83.52 - HYPERCALCEMIA Status: Acute Plan: Resolved with IVF's (3) Hypokalemia Code(s): E87.6 - HYPOKALEMIA Status: Acute (4) Normocytic anemia Code(s): D64.9 - ANEMIA, UNSPECIFIED Status: Chronic (5) Right hemiplegia Code(s): G81.91 - HEMIPLEGIA, UNSPECIFIED AFFECTING RIGHT DOMINANT SIDE Status : Acute Plan: persistent due to metastic lesions on brain - Plan plan discussed w/ family, psychosocial rehabilitation counselor Consults: Palliative Care Long discussion with pt and family regarding current situation. Pt and family deciding that a second opinion is warranted and they would prefer to do that at [facility] in [place] and not get the second opinion locally. Reiterated that this is an advanced, metastatic breast cancer that is not treatable or curable. Family/pt still wishing to pursue options for treatment. Will discuss with CM and the feasibility of transfer to [facility]. Continue supportive mgmt Appreciate Palliative care assistance Pain control as indicated
[2019-02-15] MEDS: Lidocaine 5% Patch TD SCH (17:00)
--- NOTE | 2019-02-15 17:15 | PDOC.FMACP ---
Advance Care Planning - Problem (1) Metastatic breast carcinoma Status: Acute Code(s): C50.919 - MALIGNANT NEOPLASM OF UNSP SITE OF UNSPECIFIED FEMALE BREAST (2) Hypercalcemia Status: Acute Code(s): E83.52 - HYPERCALCEMIA (3) Hypokalemia Status: Acute Code(s): E87.6 - HYPOKALEMIA (4) Normocytic anemia Status: Chronic Code(s): D64.9 - ANEMIA, UNSPECIFIED (5) Right hemiplegia Status: Acute Code(s): G81.91 - HEMIPLEGIA, UNSPECIFIED AFFECTING RIGHT DOMINANT SIDE - Note Participants: patient, family, palliative care Summary: Advanced Care Planning was discussed. The diagnosis, prognosis and goals of care were discussed. Appropriate forms and documentation to accomplish the goals of care were discussed. All questions were answered. The Palliative Care Team will be engaged to assist with completion of any outstanding forms that are needed. Long discussion with family regarding goals of care, dx, prognosis and treament options. Family wishing to pursue second opinion regarding treatment at [facility] in [place]. Reiterated that this is advanced, metastatic breast carcinoma without tx options currently. Continue supportive mgmt and pain control as clinically indicated. Time Spent (mins): 45
[2019-02-16] MEDS: Lidocaine Patch Removal 1 EACH TOP SCH ×3 (04:57→22:53)
--- NOTE | 2019-02-16 08:40 | PDOC.FMACP ---
Advance Care Planning - Note Summary: Advanced Care Planning was discussed. The diagnosis, prognosis and goals of care were discussed. Appropriate forms and documentation to accomplish the goals of care were discussed. All questions were answered. The Palliative Care Team will be engaged to assist with completion of any outstanding forms that are needed.
[2019-02-16] MEDS: HYDROcodone/Acetaminophen 7.5/325 mg Tablet PO PRN ×2 (10:50→20:30)
--- NOTE | 2019-02-16 10:53 | PDOC.MOPN ---
Interval History: Patient feels weak and tired today. Wants to seek treatment. - Vital Signs Vital Signs: Vital Signs (12 hours) Temp Pulse Resp BP Pulse Ox 02/16/19 08:10 98 02/16/19 07:35 98.5 F 99 20 138/87 98 Weight Admit Weight 189 lb 3.2 oz Weight 189 lb 3.2 oz - Physical Exam General: Alert, Oriented x3 HEENT: PERRLA Lungs: Clear to auscultation Cardiovascular: Regular rate Abdomen: Normal bowel sounds Extremities: No edema Skin: No rashes (Fungating lesion left breast) Neurological: Normal speech Psych/Mental Status: Mental status NL - Labs Result Diagrams: 02/11/19 04:54 02/14/19 05:28 - Pathology Pathology: Attempting to get medical records from [place]. A/P - Problem (1) Metastatic breast carcinoma Current Visit: Yes Code(s): C50.919 - MALIGNANT NEOPLASM OF UNSP SITE OF UNSPECIFIED FEMALE BREAST Status: Acute - Plan Plan: Will ask Dr. Benítez for his opionion. Transfer to [facility] has been initiated Financial counselors to see patient.
--- NOTE | 2019-02-16 18:52 | PDOC.HOSPP ---
- Subjective Encounter Date: 02/16/19 Encounter Time: 18:35 Subjective: f/u for widely metastatic infiltrating ductal carcinoma. Family wanted to pursue transfer to [facility] but [facility] declined the transfer and said she would need outpt workup prior to coming. Pt decided to return home with hospice. - Objective Vital Signs & Weight: Vital Signs (12 hours) Temp Pulse Resp BP Pulse Ox 02/16/19 16:19 98.7 F 90 18 129/79 95 02/16/19 10:55 98.7 F 99 18 132/80 97 02/16/19 08:10 98 02/16/19 07:35 98.5 F 99 20 138/87 98 Weight Admit Weight 189 lb 3.2 oz Weight 189 lb 3.2 oz I&O: 02/15/19 02/16/19 02/17/19 06:59 06:59 06:59 Intake Total 400 960 Output Total 800 375 300 Balance -800 25 660 Result Diagrams: 02/11/19 04:54 02/14/19 05:28 Additional Labs: Laboratory Tests 02/11/19 02/11/19 02/12/19 04:54 05:59 04:19 Potassium 3.1 L Calcium 12.4 H* 12.3 H* 11.3 H 02/13/19 05:06 Potassium Calcium 9.9 ROS - Medication Medications: Active Medications Generic Name Dose Route Start Last Admin Trade Name Freq PRN Reason Stop Dose Admin Hydrocodone Bitart/Acetaminophen 1 tab 02/15/19 10:58 02/15/19 20:15 [facility] 7.5/325 PO 1 tab Q4H PRN Administration Mild Pain (1-3) Hydrocodone Bitart/Acetaminophen 2 tab 02/15/19 10:58 02/16/19 10:50 [facility] 7.5/325 PO 2 tab Q4H PRN Administration Moderate Pain (4-6) Ibuprofen 800 mg 02/15/19 09:33 02/15/19 10:00 Motrin PO 800 mg Q8H PRN Administration Pain Lidocaine 2 patch 02/14/19 17:00 02/15/19 17:00 Lidoderm 5% Patch TD Not Given 1700 CHLOÉ Miscellaneous Medication 1 each 02/15/19 05:00 02/16/19 04:58 Lidocaine Patch Removal TOP Not Given 0500 [facility] Potassium Chloride 40 meq 02/13/19 17:00 02/16/19 08:17 Klor-Con PO 40 meq BID-WM CHLOÉ Administration - Exam NAD, awake alert General - other findings: responsive to questions Eye: anicteric sclera ENT: normocephalic atraumatic, no oropharyngeal lesions Neck: supple, symmetric, no JVD, no thyromegaly Heart: RRR, no murmur, no gallops, no rubs, normal peripheral pulses Respiratory: CTAB, no wheezes, no rales, no ronchi Gastrointestinal: soft, non-tender, non-distended, normal bowel sounds, no bruit Extremities: no cyanosis Skin - other findings: necrotic R breast mass with destruction of architecture, exposed fat Neurological: no new deficit, hemiplegia, vision deficit Musculoskeletal: generalized weakness Psychiatric: A&O x 3 Hosp A/P (1) Metastatic breast carcinoma Code(s): C50.919 - MALIGNANT NEOPLASM OF UNSP SITE OF UNSPECIFIED FEMALE BREAST Status: Acute Plan: No treatment options given the advanced nature and end-stage process, [facility] declined transfer and recommended outpt clinic work up, discussed hospice options again and pt likely will transition to hospice care at home (2) Hypercalcemia Code(s): E83.52 - HYPERCALCEMIA Status: Acute Plan: Secondary to #1, improved with IVF's (3) Hypokalemia Code(s): E87.6 - HYPOKALEMIA Status: Acute (4) Normocytic anemia Code(s): D64.9 - ANEMIA, UNSPECIFIED Status: Chronic (5) Right hemiplegia Code(s): G81.91 - HEMIPLEGIA, UNSPECIFIED AFFECTING RIGHT DOMINANT SIDE Status : Acute Plan: Dense deficit due to intracranial metastasis of breast CA, supportive care, PT for mobilization - Plan PT/OT, addiction social worker Discussed situation with patient and pt wishing to return home with family. Will recommend another family meeting 02/17/19 to discuss hospice as realistic option. [facility] declining transfer and no treatment options remain. Continue supportive mgmt Pain control as clinically indicated Likely home with hospice in 24-48h
[2019-02-16] MEDS: Lidocaine 5% Patch TD SCH (19:17)
[2019-02-16] MEDS: Dexamethasone 4 MG TAB PO SCH (20:31)
--- NOTE | 2019-02-16 20:59 | CON ---
DATE OF CONSULTATION: 02/16/2019 REASON FOR CONSULTATION: Ms. Kuo is a 53-year-old female with widespread metastatic stage IV, T4N3M1 breast cancer with brain metastasis. HISTORY OF PRESENT ILLNESS: Ms. Kuo is known that she has had breast cancer for quite some time. She has had a neglected breast mass, which became ulcerative, which she has admitted to people for years. Apparently in December, she saw wound- care doctor over in [place] and had a biopsy that showed breast cancer, but she still did nothing about it. She has been having more trouble getting out of bed. When I talked to her, she reports that she really has been having trouble getting out of bed and moving around for about 2 months. She reports that her boyfriend has been helping her get out of bed into a wheelchair and back into bed. She has not really been doing much walking and moving on her own. She has been getting more "wobbly." She recently ended up in the emergency room at [facility] in [place] and underwent a CT scan of the head, which suggested a couple of possible areas of hemorrhagic metastasis. She also had a CT scan of the chest that showed extensive metastasis. She had massive adenopathy in the right axilla and right supraclavicular region. She also had bone metastasis in multiple vertebral bodies. She was transferred here to [facility]. She has been seen by neurosurgery, did not feel that they had anything that they could offer her. She was confused and was found to be hypercalcemic. This is now better and her confusion is better. She admits to having pain in the mid back region. She really has not been getting out of bed even here in the hospital. She has a catheter in place. She denies headaches at the present time. She has no shortness of breath. She has not been eating well. She reports that she has been taking her pain medication, but in talking with the nurses, they report that she has been refusing her pain medication. Mainly, she is just lying in bed, and when I ask her to move around, she really is not wanting to do that at all. She does admit to weakness. She has had right arm weakness for some time. She voices no other complaints. PAST MEDICAL HISTORY: 1. Hypertension. 2. 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 3. Cataracts. 4. Obesity. 5. She denies other medical or surgical problems. MEDICATIONS: Hydrocodone, ibuprofen, lidocaine patch, and Zofran p.r.n. ALLERGIES: NO KNOWN MEDICAL ALLERGIES. SOCIAL HISTORY: She does live in [place] with her boyfriend. She has smoked a half pack of cigarettes for at least 20 years. She also drinks a 6-pack of alcohol daily. She is not working. She is uninsured. FAMILY HISTORY: Her mother has congestive heart failure and hypertension. Her father possibly had cancer, but she is not sure of this. There is no family history of breast cancer. REVIEW OF SYSTEMS: She denies any leg weakness or numbness. Remainder of 12 system review of systems is otherwise negative. PHYSICAL EXAMINATION: VITAL SIGNS: Height 5 feet 3 inches, weight 189 pounds. Blood pressure is 129/ 79, pulse is 90, respirations are 18, temperature is 98.7, and O2 saturation is 95% on room air. CONSTITUTIONAL: She is alert and oriented and chronically ill in appearance. Again, she does lay in the bed and does not move around much. For instance, when I asked her to sit up to listen to her lungs, she declined. With movement, she seems to grimace in pain at times. Karnofsky performance status is 30%. HEENT: Eyes; right eye is deviated to the right. Pupil is nonreactive. Left eye extraocular movements are intact. Pupil is reactive. ENT; oral cavity and oropharynx revealed no lesion or erythema. Palate elevates symmetrically. Gingiva is intact. NECK: No adenopathy in the left neck. In the right neck, she has supraclavicular adenopathy. There is no thyromegaly. LUNGS: Clear to auscultation anteriorly. Breathing is nonlabored. HEART: Regular rate and rhythm without murmur. No lower extremity edema. LYMPHATIC: She has massive matted adenopathy in the right axilla. Left axilla is without mass. There is no inguinal adenopathy. EXTREMITIES: She has significant edema of the right upper extremity. ABDOMEN: Bowel sounds present. Soft, nontender, and nondistended without mass or hepatosplenomegaly. Liver percusses to normal size. NEUROLOGIC: Cranial nerves 2 through 12 are grossly intact. Motor strength is 5/5 in the left upper extremity in all muscle groups tested. In the right upper extremity, strength is 2/5 in muscle groups tested. Leg strength appears to be 5/5. Gait was not able to be tested. BREASTS: Breast exam was not performed at bedside. I did review the pictures at the nursing station, which showed a large fungating mass involving the right breast. LABORATORY DATA: CBC revealed a white blood cell count of 18,000 with a hemoglobin of 8.3, hematocrit of 25.8, platelet count of 442,000. Chemistry group showed a sodium of 137, potassium of 3.0, BUN of 4, calcium is 12.4 on admission but today was 9.2. Albumin is 2.3 with a total protein of 5.7. RADIOLOGIC DATA: CT scan of the head and CT scan of the chest performed in [place] were available on disk and personally reviewed. She has at least 2 areas of hemorrhagic metastasis. One is in the right temporal lobe and the other is in the lucy. She also has a large calvarial metastases. There did not appear to be midline shift. The CT of the chest shows massive adenopathy in the right axilla. She also has bone metastasis in the spine and lung metastasis. ASSESSMENT: Ms. Kuo is a 53-year-old female with widespread stage IV metastatic breast cancer from the right breast to the bone, lung, and brain. She also had hypercalcemia from her extensive bone metastasis, which is now improved. This is a clinical stage IV, T4N3M1 lesion. Reportedly, this has been biopsied and showed breast cancer, but I do not have the pathology report from [facility] at this time. This has been requested through the hospital system. PLAN: This is a very sad, unfortunate situation. She presents with basically a neglected breast cancer and now is in quite poor shape. Karnofsky performance status is quite poor. However, in talking with her, she seems inclined to want to do treatment of some sort now. However, it may be too extensive and too late to do treatment. The family in talking with the patient and one family member who is with her, also seem to have some unrealistic expectations as far as what we can accomplish. I did explain that her disease is not curable. They have requested a transfer inpatient to [facility] to her other physicians, it is my understanding that [facility] has declined any inpatient transfer. She then asked if I was from [facility], then the patient some how seemed to be under the impression that a specialist from [facility] was going to drive up to [place] to see her here in the hospital. I also explained to her that was not going to occur. The problem with any therapy at this point is given her poor performance status and the fact that she is not getting out of bed. We would make treatment less likely to accomplish any meaningful benefit. She has such a large systemic burden that doing radiation therapy to the brain may give that she has a poor performance status, may not really improve her survival or improve her quality of life. At this point, she has not been started on any steroids and I would recommend that we start her on dexamethasone. If we are going to consider treatment, then she would need an MRI of the brain and would also need an MRI of the thoracic spine. One of the other difficulties we would have with treatment would be how she is going to transport herself back and forth for treatment, where she is going to stay and who is going to take care of her. I did discuss with her the logistics of radiation to the brain as well as the benefits and risk of treatment. Side effects would include, but not be limited to skin reaction, fatigue, lower blood counts, hair loss, which may be permanent, headache, nausea, vomiting, and possible damage to her normal brain which might affect memory or mentation. If we were to treat her thoracic spine, she may have some issues with difficulty with swallowing and tenderness with swallowing temporarily because of the radiation therapy. I again expressed my concerns to Ms. Kuo that she may not really receive any meaningful benefit from radiation therapy. She has not decided what she wants to do at this point. She is going to discuss this with her family members. Her issue potentially decides to do radiation therapy, then again we would need to obtain an MRI of the brain and MRI of the thoracic spine to evaluate what exactly needs to be treated. We will follow her with you as she makes her treatment decision. Job ID: [id number] [facility]
[2019-02-17] MEDS: Dexamethasone 4 MG TAB PO SCH ×2 (07:44→20:56)
[2019-02-17] MEDS: HYDROcodone/Acetaminophen 7.5/325 mg Tablet PO PRN ×2 (07:46→20:57)
[2019-02-17 09:07] LABS: Platelet Count 492 thou/uL (130-400)
--- NOTE | 2019-02-17 09:07 | PDOC.HOSPP ---
- Subjective Subjective: Patient seen and examined for metastatic breast Ca. Pain controlled. No new complaints. No overnight events - Objective Vital Signs & Weight: Vital Signs (12 hours) Temp Pulse Resp BP Pulse Ox 02/17/19 07:35 97.7 F 95 16 157/92 H 95 Weight Admit Weight 189 lb 3.2 oz Weight 189 lb 3.2 oz I&O: 02/16/19 02/17/19 02/18/19 06:59 06:59 06:59 Intake Total 400 960 Output Total 375 950 Balance 25 10 Result Diagrams: 02/17/19 08:36 02/14/19 05:28 ROS - Review of Systems Respiratory: denies: cough, dry, shortness of breath, hemoptysis, SOB with excertion, pleuritic pain, sputum, wheezing, other Cardiovascular: denies: chest pain, palpitations, orthopnea, paroxysmal noc. dyspnea, edema, light headedness, other Gastrointestinal: reports: constipation. denies: nausea, vomitting, abdominal pain, diarrhea, melena, hematochezia, other - Medication Medications: Active Medications Generic Name Dose Route Start Last Admin Trade Name Freq PRN Reason Stop Dose Admin Hydrocodone Bitart/Acetaminophen 1 tab 02/15/19 10:58 02/15/19 20:15 [place] 7.5/325 PO 1 tab Q4H PRN Administration Mild Pain (1-3) Hydrocodone Bitart/Acetaminophen 2 tab 02/15/19 10:58 02/17/19 07:46 [place] 7.5/325 PO 2 tab Q4H PRN Administration Moderate Pain (4-6) Dexamethasone 4 mg 02/16/19 21:00 02/17/19 07:44 Decadron PO 4 mg BID CHLOÉ Administration Ibuprofen 800 mg 02/15/19 09:33 02/15/19 10:00 Motrin PO 800 mg Q8H PRN Administration Pain Lidocaine 2 patch 02/14/19 17:00 02/16/19 19:17 Lidoderm 5% Patch TD Not Given 1700 [facility] Miscellaneous Medication 1 each 02/15/19 05:00 02/16/19 22:53 Lidocaine Patch Removal TOP Not Given 0500 CHLOÉ Pantoprazole Sodium 40 mg 02/17/19 09:00 02/17/19 07:44 Protonix PO 40 mg DAILY CHLOÉ Administration Potassium Chloride 40 meq 02/13/19 17:00 02/17/19 07:44 Klor-Con PO 40 meq BID-WM CHLOÉ Administration - Exam NAD Heart: RRR, no gallops Respiratory: CTAB, no rales Gastrointestinal: soft, non-tender, normal bowel sounds Psychiatric: normal affect, A&O x 3 Hosp A/P (1) Metastatic breast carcinoma Code(s): C50.919 - MALIGNANT NEOPLASM OF UNSP SITE OF UNSPECIFIED FEMALE BREAST Status: Acute (2) Hypercalcemia Code(s): E83.52 - HYPERCALCEMIA (3) Hypokalemia Code(s): E87.6 - HYPOKALEMIA (4) Obesity (BMI 30.0-34.9) Code(s): E66.9 - OBESITY, UNSPECIFIED (5) Other issues per previous notes - Plan Started on Dexamethasone Cont PPI Add Stool softener Patient will d/w family about further treatment vs Hospice Check electrolytes today Treat constipation
[2019-02-17] MEDS ORDERED: Polyethylene Glycol 3350 17 GM Packet PO SCH (09:15)
[2019-02-17 09:19] LABS: Albumin 2.3 g/dL (3.5-5.0); Anion Gap 15 mmol/L (10-20); BUN (Urea Nitrogen) 7 mg/dL (9.8-20.1); Calc. Creatinine Clearance 161 mL/min (70-130); Calcium 8.5 mg/dL (7.8-10.44); Carbon Dioxide 21 mmol/L (22-29); Chloride 104 mmol/L (98-107); Estimated GFR-MDRD Greater than 90; Glucose 123 mg/dL (70-105); Magnesium 1.8 mg/dL (1.6-2.6); Phosphorus 2.8 mg/dL (2.3-4.7); Potassium 4.8 mmol/L (3.5-5.1); Sodium 135 mmol/L (136-145)
--- NOTE | 2019-02-17 10:12 | PDOC.MOPN ---
Interval History: Patient states she is comfortable. - Vital Signs Vital Signs: Vital Signs (12 hours) Temp Pulse Resp BP Pulse Ox 02/17/19 07:35 97.7 F 95 16 157/92 H 95 Weight Admit Weight 189 lb 3.2 oz Weight 189 lb 3.2 oz - Physical Exam General: Alert Lungs: Clear to auscultation Cardiovascular: Regular rate Abdomen: Normal bowel sounds Extremities: Other (RUE lymphedema) Neurological: Other - Labs Result Diagrams: 02/17/19 08:36 02/17/19 08:36 Lab results: Laboratory Results - last 24 hr 02/17/19 08:36: Hgb 8.0 L, Hct 26.0 L, Plt Count 492 H 02/17/19 08:36: Sodium 135 L, Potassium 4.8, Chloride 104, Carbon Dioxide 21 L, Anion Gap 15, BUN 7 L, Creatinine 0.56 L, Estimated GFR (MDRD) Greater than 90 , BUN/Creatinine Ratio 12.50, Glucose 123 H, Calcium 8.5, Phosphorus 2.8, Magnesium 1.8, Albumin 2.3 L Status: lab reviewed by me - Pathology Pathology: HR+, HER2+ disease A/P - Problem (1) Metastatic breast carcinoma Current Visit: Yes Code(s): C50.919 - MALIGNANT NEOPLASM OF UNSP SITE OF UNSPECIFIED FEMALE BREAST Status: Acute - Plan Plan: Patient undecided regarding brain radiation. If she decides to proceed, she could get weekly herceptin and begin tamoxifen. She wishes to discuss with her family over the weekend. Will return on Thursday for her decision. She understands the palliative nature of all treatment.
[2019-02-17] MEDS: Lidocaine 5% Patch TD SCH (17:06)
[2019-02-17] MEDS: Senokot S 8.6-50 MG TAB PO SCH (20:58)
[2019-02-17] MEDS: Lidocaine Patch Removal 1 EACH TOP SCH (23:27)
--- NOTE | 2019-02-18 08:16 | PDOC.HOSPP ---
- Subjective Encounter Date: 02/18/19 Encounter Time: 08:12 Subjective: Patient seen and examined for metastic breast Ca. Some discomfort over the Rt breast. No N/V/headache. No new complaints. No overnight events - Objective Vital Signs & Weight: Vital Signs (12 hours) Temp Pulse Resp BP Pulse Ox 02/18/19 07:31 96.9 F L 63 18 153/87 H 97 Weight Admit Weight 189 lb 3.2 oz Weight 189 lb 3.2 oz I&O: 02/17/19 02/18/19 02/19/19 06:59 06:59 06:59 Intake Total 960 750 Output Total 950 850 Balance 10 -100 Result Diagrams: 02/17/19 08:36 02/17/19 08:36 ROS - Review of Systems Respiratory: denies: cough, dry, shortness of breath, hemoptysis, SOB with excertion, pleuritic pain, sputum, wheezing, other Cardiovascular: denies: chest pain, palpitations, orthopnea, paroxysmal noc. dyspnea, edema, light headedness, other - Medication Medications: Active Medications Generic Name Dose Route Start Last Admin Trade Name Freq PRN Reason Stop Dose Admin Hydrocodone Bitart/Acetaminophen 1 tab 02/15/19 10:58 02/15/19 20:15 [place] 7.5/325 PO 1 tab Q4H PRN Administration Mild Pain (1-3) Hydrocodone Bitart/Acetaminophen 2 tab 02/15/19 10:58 02/17/19 20:57 [place] 7.5/325 PO 2 tab Q4H PRN Administration Moderate Pain (4-6) Dexamethasone 4 mg 02/16/19 21:00 02/17/19 20:56 Decadron PO 4 mg BID CHLOÉ Administration Ibuprofen 800 mg 02/15/19 09:33 02/15/19 10:00 Motrin PO 800 mg Q8H PRN Administration Pain Lidocaine 2 patch 02/14/19 17:00 02/17/19 17:06 Lidoderm 5% Patch TD Not Given 1700 [facility] Miscellaneous Medication 1 each 02/15/19 05:00 02/17/19 23:27 Lidocaine Patch Removal TOP Not Given 0500 CHLO[facility] Pantoprazole Sodium 40 mg 02/17/19 09:00 02/17/19 07:44 Protonix PO 40 mg DAILY CHLOÉ Administration Senna/Docusate Sodium 2 tab 02/17/19 21:00 02/17/19 20:58 Senokot S PO 2 tab BID CHLOÉ Administration - Exam NAD Neck: supple, no JVD Heart: RRR, no gallops Respiratory: CTAB, no rales Gastrointestinal: soft, non-tender, normal bowel sounds Extremities: no edema Hosp A/P (1) Metastatic breast carcinoma Code(s): C50.919 - MALIGNANT NEOPLASM OF UNSP SITE OF UNSPECIFIED FEMALE BREAST Status: Acute (2) Hypercalcemia Code(s): E83.52 - HYPERCALCEMIA (3) Hypokalemia Code(s): E87.6 - HYPOKALEMIA (4) Obesity (BMI 30.0-34.9) Code(s): E66.9 - OBESITY, UNSPECIFIED (5) Tobacco dependence Code(s): F17.200 - NICOTINE DEPENDENCE, UNSPECIFIED, UNCOMPLICATED (6) Other issues per previous notes - Plan plan discussed w/ family, PT/OT, DVT proph w/SCDs Cont Dexamethasone Pain control Cont other meds as above Patient to d/w family about further treatment vs Hospice
[2019-02-18] MEDS: Polyethylene Glycol 3350 17 GM Packet PO SCH (09:22)
[2019-02-18] MEDS: Dexamethasone 4 MG TAB PO SCH ×2 (09:22→23:49)
[2019-02-18] MEDS: Senokot S 8.6-50 MG TAB PO SCH ×2 (09:22→23:50)
--- NOTE | 2019-02-18 10:32 | PRG ---
DATE OF SERVICE: 02/18/2019 SUBJECTIVE: I visited with Ms. Kuo again today. She is a 53-year-old female with widely metastatic stage IV, T4 N3 M1 invasive ductal carcinoma of the right breast that was estrogen receptor positive and HER2 receptor positive. We did get the pathology back to us from [facility]. Overall, she appears to be about the same. Mentation [place], her thinking seems to come and go. However, when I visit with her, she seems to be fairly clear. She is not having any new symptoms or problems. OBJECTIVE: VITAL SIGNS: Height 5 feet 3 inches, weight 189 pounds, blood pressure 153/87, pulse 63, respirations are 18, temperature 96.9, and O2 saturation 97%. GENERAL: She seemed alert and oriented. She again remains confined to the bed and is not moving around well. NEUROLOGIC: Unchanged. Motor strength is good in the left upper extremity and both lower extremities. She has some movement in the right upper extremity, but this is unchanged. ASSESSMENT: Ms. Kuo is a 53-year-old female with stage IV breast cancer, who has known brain, bone, and lung metastases. She has not yet had any treatment for her malignancy. Diagnosis was only recent. She has neglected this breast cancer, it is known about a mass in the breast for a number of years. Performance status is quite poor. PLAN: I again offered Ms. Kuo whole-brain radiation therapy to treat her brain metastasis. Even though, her performance status is poor, I am willing to offer her radiation therapy to the brain, because she had not yet had any treatment and also because she has estrogen receptor positive and HER2 receptor positive disease. Therefore, her disease is likely to be responsive to chemotherapy and she has reasonable treatment options to treat her systemic disease. I think because of that, she has a reasonable chance that her performance status will improve with treatment. In discussion with her today, she is still not decided whether she wants to do the radiation therapy to the brain or not. At first, she said to me why do it if it is not going to help and then later, she says that she would be willing to try. She still does not appear to have discussed this with the family. In discussing this with the nursing staff, there apparently has been some conflict between the family and the patient over her decisions and the nursing staff feels that she may really not want to do any treatment, but that her family is more pushing her toward treatment. I did explain to Ms. Kuo that if she is not willing to do any chemotherapy, then there really would not be a reason to do radiation therapy because I do not think radiation therapy would help her that much. However, she is willing to do chemotherapy, then there is a chance with the radiation to the brain and chemotherapy that her performance status may improve significantly. I reviewed with her the logistics of radiation as well as the benefits and risk of treatment. Side effects would include, but not be limited to skin reaction, fatigue, lower blood counts, headache, nausea, vomiting, possible damage to her normal brain, which might affect think her mentation and rarely other unforeseen side effects from radiation. Hopefully, she will make a treatment decision by Thursday. If she is not willing to do treatment, then hospice would be her best option. Job ID: [id number]
[2019-02-18] MEDS: Lidocaine 5% Patch TD SCH (17:52)
[2019-02-18] MEDS: HYDROcodone/Acetaminophen 7.5/325 mg Tablet PO PRN (23:48)
[2019-02-19] MEDS: Lidocaine Patch Removal 1 EACH TOP SCH (06:17)
[2019-02-19] MEDS: Senokot S 8.6-50 MG TAB PO SCH ×2 (08:34→20:26)
[2019-02-19] MEDS: Dexamethasone 4 MG TAB PO SCH ×2 (08:34→20:27)
[2019-02-19] MEDS: Polyethylene Glycol 3350 17 GM Packet PO SCH (08:35)
[2019-02-19] MEDS: Ibuprofen 800 MG TAB PO PRN (08:42)
--- NOTE | 2019-02-19 09:29 | PDOC.HOSPP ---
- Subjective Encounter Date: 02/19/19 Encounter Time: 08:45 Subjective: Patient seen and examined for Breast Ca with mets. No new complaints. No overnight events - Objective Vital Signs & Weight: Vital Signs (12 hours) Temp Pulse Resp BP Pulse Ox 02/19/19 07:40 97.4 F L 62 16 138/79 96 Weight Admit Weight 189 lb 3.2 oz Weight 189 lb 3.2 oz I&O: 02/18/19 02/19/19 02/20/19 06:59 06:59 06:59 Intake Total 750 240 Output Total 850 1100 Balance -100 -860 Result Diagrams: 02/17/19 08:36 02/17/19 08:36 ROS - Review of Systems Respiratory: denies: cough, dry, shortness of breath, hemoptysis, SOB with excertion, pleuritic pain, sputum, wheezing, other Cardiovascular: denies: chest pain, palpitations, orthopnea, paroxysmal noc. dyspnea, edema, light headedness, other - Medication Medications: Active Medications Generic Name Dose Route Start Last Admin Trade Name Freq PRN Reason Stop Dose Admin Hydrocodone Bitart/Acetaminophen 1 tab 02/15/19 10:58 02/15/19 20:15 [place] 7.5/325 PO 1 tab Q4H PRN Administration Mild Pain (1-3) Hydrocodone Bitart/Acetaminophen 2 tab 02/15/19 10:58 02/18/19 23:48 [place] 7.5/325 PO 2 tab Q4H PRN Administration Moderate Pain (4-6) Dexamethasone 4 mg 02/16/19 21:00 02/19/19 08:34 Decadron PO 4 mg BID CHLOÉ Administration Ibuprofen 800 mg 02/15/19 09:33 02/19/19 08:42 Motrin PO 800 mg Q8H PRN Administration Pain Lidocaine 2 patch 02/14/19 17:00 02/18/19 17:52 Lidoderm 5% Patch TD Not Given 1700 [facility]LO[facility] Miscellaneous Medication 1 each 02/15/19 05:00 02/19/19 06:17 Lidocaine Patch Removal TOP Not Given 0500 CHLOÉ Pantoprazole Sodium 40 mg 02/17/19 09:00 02/19/19 08:34 Protonix PO 40 mg DAILY CHLOÉ Administration Polyethylene Glycol 17 gm 02/18/19 09:00 02/19/19 08:35 Miralax PO 17 gm DAILY CHLOÉ Administration Senna/Docusate Sodium 2 tab 02/17/19 21:00 02/19/19 08:34 Senokot S PO 2 tab BID CHLOÉ Administration - Exam NAD Neck: supple, no JVD Heart: RRR, no gallops Respiratory: CTAB, no rales Gastrointestinal: soft, normal bowel sounds Extremities: no edema Hosp A/P (1) Metastatic breast carcinoma Code(s): C50.919 - MALIGNANT NEOPLASM OF UNSP SITE OF UNSPECIFIED FEMALE BREAST Status: Acute (2) Hypercalcemia Code(s): E83.52 - HYPERCALCEMIA (3) Hypokalemia Code(s): E87.6 - HYPOKALEMIA (4) Obesity (BMI 30.0-34.9) Code(s): E66.9 - OBESITY, UNSPECIFIED (5) Tobacco dependence Code(s): F17.200 - NICOTINE DEPENDENCE, UNSPECIFIED, UNCOMPLICATED (6) Other issues per previous notes - Plan on Dexamethasone DC Baldev in AM Patient to talk to family about brain radiation vs Hospice Cont other meds as above
[2019-02-19] MEDS: HYDROcodone/Acetaminophen 7.5/325 mg Tablet PO PRN ×2 (10:17→16:53)
[2019-02-19] MEDS: Lidocaine 5% Patch TD SCH (16:06)
[2019-02-20] MEDS: HYDROcodone/Acetaminophen 7.5/325 mg Tablet PO PRN ×3 (02:10→18:24)
[2019-02-20] MEDS: Lidocaine Patch Removal 1 EACH TOP SCH (06:08)
[2019-02-20] MEDS: Dexamethasone 4 MG TAB PO SCH ×2 (09:16→20:08)
[2019-02-20] MEDS: Senokot S 8.6-50 MG TAB PO SCH ×2 (09:16→20:06)
[2019-02-20] MEDS: Polyethylene Glycol 3350 17 GM Packet PO SCH (09:17)
[2019-02-20] MEDS ORDERED: Bisacodyl 10 MG SUPP PR PRN (14:35)
--- NOTE | 2019-02-20 16:12 | PDOC.HOSPP ---
- Subjective Encounter Date: 02/20/19 Encounter Time: 15:45 Subjective: Patient seen and examined for metastatic Breast Ca. Pain controlled. No new complaints. [place] dced today. Voiding well. No overnight events - Objective Vital Signs & Weight: Vital Signs (12 hours) Temp Pulse Resp BP Pulse Ox 02/20/19 08:00 96 02/20/19 07:37 97.3 F L 52 L 16 124/75 96 Weight Admit Weight 189 lb 3.2 oz Weight 189 lb 3.2 oz I&O: 02/19/19 02/20/19 02/21/19 06:59 06:59 06:59 Intake Total 240 1260 Output Total 1100 2700 Balance -860 -1440 Result Diagrams: 02/17/19 08:36 02/17/19 08:36 ROS - Review of Systems Respiratory: denies: cough, dry, shortness of breath, hemoptysis, SOB with excertion, pleuritic pain, sputum, wheezing, other Cardiovascular: denies: chest pain, palpitations, orthopnea, paroxysmal noc. dyspnea, edema, light headedness, other Gastrointestinal: denies: nausea, vomitting, abdominal pain, diarrhea, constipation, melena, hematochezia, other - Medication Medications: Active Medications Generic Name Dose Route Start Last Admin Trade Name Freq PRN Reason Stop Dose Admin Hydrocodone Bitart/Acetaminophen 1 tab 02/15/19 10:58 02/15/19 20:15 [place] 7.5/325 PO 1 tab Q4H PRN Administration Mild Pain (1-3) Hydrocodone Bitart/Acetaminophen 2 tab 02/15/19 10:58 02/20/19 09:38 [place] 7.5/325 PO 2 tab Q4H PRN Administration Moderate Pain (4-6) Dexamethasone 4 mg 02/16/19 21:00 02/20/19 09:16 Decadron PO 4 mg BID CHLOÉ Administration Ibuprofen 800 mg 02/15/19 09:33 02/19/19 08:42 Motrin PO 800 mg Q8H PRN Administration Pain Lidocaine 2 patch 02/14/19 17:00 02/19/19 16:06 Lidoderm 5% Patch TD Not Given 1700 [facility] Miscellaneous Medication 1 each 02/15/19 05:00 02/20/19 06:08 Lidocaine Patch Removal TOP Not Given 0500 CHLOÉ Pantoprazole Sodium 40 mg 02/17/19 09:00 02/20/19 09:16 Protonix PO 40 mg DAILY CHLOÉ Administration Polyethylene Glycol 17 gm 02/18/19 09:00 02/20/19 09:17 Miralax PO 17 gm DAILY CHLOÉ Administration Senna/Docusate Sodium 2 tab 02/17/19 21:00 02/20/19 09:16 Senokot S PO 2 tab BID CHLOÉ Administration - Exam NAD Heart: RRR, no gallops Respiratory: CTAB, no rales Gastrointestinal: soft, non-tender, normal bowel sounds Extremities: no edema Hosp A/P (1) Metastatic breast carcinoma Code(s): C50.919 - MALIGNANT NEOPLASM OF UNSP SITE OF UNSPECIFIED FEMALE BREAST Status: Acute (2) Hypercalcemia Code(s): E83.52 - HYPERCALCEMIA (3) Hypokalemia Code(s): E87.6 - HYPOKALEMIA (4) Obesity (BMI 30.0-34.9) Code(s): E66.9 - OBESITY, UNSPECIFIED (5) Tobacco dependence Code(s): F17.200 - NICOTINE DEPENDENCE, UNSPECIFIED, UNCOMPLICATED (6) Other issues per previous notes - Plan on Dexamethasone per Rad Onc Patient to talk to family about brain radiation vs Hospice Further plans based on patient's decision Cont other meds as above
[2019-02-20] MEDS: Lidocaine 5% Patch TD SCH (18:41)
[2019-02-21] MEDS: Lidocaine Patch Removal 1 EACH TOP SCH (06:45)
[2019-02-21] MEDS: HYDROcodone/Acetaminophen 7.5/325 mg Tablet PO PRN ×2 (07:53→16:02)
[2019-02-21] MEDS: Senokot S 8.6-50 MG TAB PO SCH ×2 (07:54→20:46)
[2019-02-21] MEDS: Dexamethasone 4 MG TAB PO SCH ×2 (07:54→20:46)
[2019-02-21] MEDS: Polyethylene Glycol 3350 17 GM Packet PO SCH (07:55)
[2019-02-21] MEDS: Ibuprofen 800 MG TAB PO PRN ×2 (08:08→16:03)
[2019-02-21 08:27] LABS: #Eosinphils 0.2 thou/uL (0.0-0.7); #Lymphocytes 2.9 thou/uL (1.20-3.40); #Neutrophils 11.1 thou/uL (1.40-6.50); %Basophils 0.3 % (0.0-1.0); %Eosinophils 1.1 % (0.0-10.0); %Lymphocytes 19.3 % (21.0-51.0); %Monocytes 6.4 % (0.0-10.0); %Neutrophils 72.9 % (42.0-75.0); Hemoglobin 8.4 g/dL (12.0-16.0); Mean Corpuscular Hemoglobin 27.7 pg (27.0-31.0); Mean Corpuscular Volume 86.7 fL (78.0-98.0); Mean Platelet Volume 7.6 fL (7.4-10.4); Platelet Count 592 thou/uL (130-400); RBC Distribution Width 14.1 % (11.5-14.5); Red Blood Cell (RBC) Count 3.03 mill/uL (4.20-5.40); White Blood Cell (WBC) Count 15.2 thou/uL (4.8-10.8)
[2019-02-21 08:49] LABS: Anion Gap 12 mmol/L (10-20); BUN (Urea Nitrogen) 9 mg/dL (9.8-20.1); Calc. Creatinine Clearance 153 mL/min (70-130); Calcium 8.4 mg/dL (7.8-10.44); Carbon Dioxide 22 mmol/L (22-29); Chloride 110 mmol/L (98-107); Estimated GFR-MDRD Greater than 90; Glucose 85 mg/dL (70-105); Potassium 3.9 mmol/L (3.5-5.1); Sodium 140 mmol/L (136-145)
--- NOTE | 2019-02-21 09:59 | PRG ---
DATE OF SERVICE: 02/21/2019 SUBJECTIVE: Ms. Kuo is doing about the same. She reports some headaches today. I did talk with nursing. Family was with her all weekend. Apparently, Physical Therapy tried to get her out of bed on Thursday, but she felt lightheaded. I did do some exercise with her in the bed. She has no new complaints. OBJECTIVE: VITAL SIGNS: Height 5 feet 3 inches, weight 189 pounds, blood pressure 135/69, pulse is 70, respirations are 16, temperature is 97.7, O2 saturation is 99%. GENERAL: She is alert and oriented. She remains confined to the bed. Karnofsky performance status is unchanged at 20%. Remainder of physical exam was not performed. ASSESSMENT: Ms. Kuo is a 53-year-old female with widely metastatic stage IV, T4 N3 M1 invasive ductal carcinoma of the right breast with estrogen receptor positive and HER2 receptor positive. She also has hypercalcemia of malignancy, which is controlled at this time. She has not yet received any treatment for her cancer. PLAN: Again, I have discussed the case with Ms. Kuo and with Dr. Morrissey. We are willing to offer her treatment since she has ER positive and HER2 positive disease, which is likely going to be responsive to systemic chemotherapy. This could result in an improvement in quality of life. Again, Ms. Kuo has been reluctant to make a decision. Even today, she tried to say that she wanted to discuss this with her family first. This is what she told me on Thursday. I reminded her that she had family with her all weekend and ultimately that this was her decision. I asked her to make a treatment decision today. I told her we had 2 options. One option was to do nothing and go home with hospice care. The other option is we can try treatment, which would begin with whole-brain radiation therapy followed by palliative chemotherapy. The logistics of whole-brain radiation as well as the benefits and risks were discussed. Side effects were reviewed. This would include, but not be limited to skin reaction, fatigue, lower blood counts, hair loss, headache, nausea, vomiting, small risk of damage to her normal brain, which could affect mentation. Time was taken to all of her questions. She has decided at this point to try and pursue treatment. We will make arrangements for her radiation therapy. Job ID: [id number]
--- NOTE | 2019-02-21 10:32 | PDOC.HOSPP ---
- Subjective Encounter Date: 02/21/19 (f/u metastatic cancer) Encounter Time: 10:30 Subjective: Pt c/o headache earlier and received oral meds. She reports this is better. Denies any n/v/abd pain, denies any problems with bm's - Objective Vital Signs & Weight: Vital Signs (12 hours) Temp Pulse Resp BP Pulse Ox 02/21/19 07:41 97.7 F 70 16 135/69 99 Weight Admit Weight 189 lb 3.2 oz Weight 189 lb 3.2 oz I&O: 02/20/19 02/21/19 02/22/19 06:59 06:59 06:59 Intake Total 1260 1100 Output Total 2700 550 Balance -1440 550 Result Diagrams: 02/21/19 08:12 02/21/19 08:12 ROS - Medication Medications: Active Medications Generic Name Dose Route Start Last Admin Trade Name Freq PRN Reason Stop Dose Admin Hydrocodone Bitart/Acetaminophen 1 tab 02/15/19 10:58 02/15/19 20:15 [place] 7.5/325 PO 1 tab Q4H PRN Administration Mild Pain (1-3) Hydrocodone Bitart/Acetaminophen 2 tab 02/15/19 10:58 02/21/19 07:53 [place] 7.5/325 PO 2 tab Q4H PRN Administration Moderate Pain (4-6) Dexamethasone 4 mg 02/16/19 21:00 02/21/19 07:54 Decadron PO 4 mg BID CHLOÉ Administration Ibuprofen 800 mg 02/15/19 09:33 02/21/19 08:08 Motrin PO 800 mg Q8H PRN Administration Pain Lidocaine 2 patch 02/14/19 17:00 02/20/19 18:41 Lidoderm 5% Patch TD Not Given 1700 [facility]LO[facility] Miscellaneous Medication 1 each 02/15/19 05:00 02/21/19 06:45 Lidocaine Patch Removal TOP Not Given 0500 CHLO[facility] Pantoprazole Sodium 40 mg 02/17/19 09:00 02/21/19 07:54 Protonix PO 40 mg DAILY CHLOÉ Administration Polyethylene Glycol 17 gm 02/18/19 09:00 02/21/19 07:55 Miralax PO 17 gm DAILY CHLOÉ Administration Senna/Docusate Sodium 2 tab 02/17/19 21:00 02/21/19 07:54 Senokot S PO 2 tab BID CHLOÉ Administration - Exam NAD Heart: RRR, no murmur, normal peripheral pulses Respiratory: CTAB, no wheezes, no rales, no ronchi, normal chest expansion Gastrointestinal: soft, non-tender, non-distended, normal bowel sounds, no palpable masses Extremities: no cyanosis, no clubbing, no edema Skin: normal turgor Psychiatric: normal affect Hosp A/P (1) Metastatic breast carcinoma Code(s): C50.919 - MALIGNANT NEOPLASM OF UNSP SITE OF UNSPECIFIED FEMALE BREAST Status: Acute (2) Anemia Code(s): D64.9 - ANEMIA, UNSPECIFIED Status: Acute Qualifiers: Anemia type: unspecified type Qualified Code(s): D64.9 - Anemia, unspecified (3) Brain metastases Code(s): C79.31 - SECONDARY MALIGNANT NEOPLASM OF BRAIN Status: Acute (4) Hypercalcemia Code(s): E83.52 - HYPERCALCEMIA Status: Resolved - Plan Plan: - has decided on radiation - to have the markings done this afternoon at [facility] Onc - Await further recommendations from Onc with regards to chemo - continue steroids and pain meds prn dvt prophy - pt has been refusing scd's and no pharmacologic given abnormality of intracerebral hemorrhage on admission. gi prophy - on PPI due to steroids code status is DNAR reviewed plan of care wiht patient, no questions or further needs at end of eval discharge disposition per Rad Onc and Oncology.
--- NOTE | 2019-02-21 14:32 | PDOC.MOPN ---
Interval History: Denies pain, complains of being tired. Patient initially stated she would start XRT today but declined again this afternoon. She is indecisive and possibly incapable of making this decision alone. She states she did not speak with family this weekend although many members visited over the past few days. She states she will speak with Mom today for assistance with decision making. Regarding chemo, plan to start Tamoxifen if she agrees to XRT. Last menses 1 year ago. - Vital Signs Vital Signs: Vital Signs (12 hours) Temp Pulse Resp BP Pulse Ox 02/21/19 08:00 99 02/21/19 07:41 97.7 F 70 16 135/69 99 Weight Admit Weight 189 lb 3.2 oz Weight 189 lb 3.2 oz - Physical Exam General: Alert HEENT: Atraumatic Lungs: Clear to auscultation Cardiovascular: Regular rate Abdomen: Normal bowel sounds Extremities: No clubbing Skin: No rashes (right breast lesions) Neurological: Other - Labs Result Diagrams: 02/21/19 08:12 02/21/19 08:12 Lab results: Laboratory Results - last 24 hr 02/21/19 08:12: WBC 15.2 H, RBC 3.03 L, Hgb 8.4 L, Hct 26.3 L, MCV 86.7, MCH 27.7, MCHC 32.0, RDW 14.1, Plt Count 592 H, MPV 7.6, Neutrophils % 72.9, Lymphocytes % 19.3 L, Monocytes % 6.4, Eosinophils % 1.1, Basophils % 0.3, Neutrophils # 11.1 H, Lymphocytes # 2.9, Monocytes # 1.0 H, Eosinophils # 0.2, Basophils # 0.0 02/21/19 08:12: Sodium 140, Potassium 3.9, Chloride 110 H, Carbon Dioxide 22, Anion Gap 12, BUN 9 L, Creatinine 0.59 L, Estimated GFR (MDRD) Greater than 90 , Glucose 85, Calcium 8.4 A/P - Problem (1) Metastatic breast carcinoma Current Visit: Yes Code(s): C50.919 - MALIGNANT NEOPLASM OF UNSP SITE OF UNSPECIFIED FEMALE BREAST Status: Acute - Plan Plan: Patient declined to go to XRT today. Appointment made for tomorrow. Will start Tamoxifen once she begins treatment. Pain control and supportive care. Wound care.
[2019-02-21] MEDS: Lidocaine 5% Patch TD SCH (16:46)
[2019-02-22 04:22] LABS: #Eosinphils 0.2 thou/uL (0.0-0.7); #Lymphocytes 1.8 thou/uL (1.20-3.40); #Neutrophils 11.1 thou/uL (1.40-6.50); %Basophils 0.1 % (0.0-1.0); %Eosinophils 1.6 % (0.0-10.0); %Lymphocytes 12.5 % (21.0-51.0); %Monocytes 6.8 % (0.0-10.0); Hemoglobin 8.2 g/dL (12.0-16.0); Mean Corpuscular HGB CONC 32.6 g/dL (32.0-36.0); Mean Corpuscular Hemoglobin 28.3 pg (27.0-31.0); Mean Corpuscular Volume 86.7 fL (78.0-98.0); Mean Platelet Volume 7.6 fL (7.4-10.4); Platelet Count 555 thou/uL (130-400); RBC Distribution Width 15.1 % (11.5-14.5); White Blood Cell (WBC) Count 14.1 thou/uL (4.8-10.8)
[2019-02-22 04:42] LABS: Anion Gap 12 mmol/L (10-20); BUN (Urea Nitrogen) 8 mg/dL (9.8-20.1); Calc. Creatinine Clearance 158 mL/min (70-130); Calcium 8.4 mg/dL (7.8-10.44); Carbon Dioxide 21 mmol/L (22-29); Chloride 110 mmol/L (98-107); Estimated GFR-MDRD Greater than 90; Glucose 100 mg/dL (70-105); Potassium 4.3 mmol/L (3.5-5.1); Sodium 139 mmol/L (136-145)
[2019-02-22] MEDS: Lidocaine Patch Removal 1 EACH TOP SCH (05:00)
[2019-02-22] MEDS: Senokot S 8.6-50 MG TAB PO SCH (09:45)
[2019-02-22] MEDS: Dexamethasone 4 MG TAB PO SCH (09:45)
[2019-02-22] MEDS: Polyethylene Glycol 3350 17 GM Packet PO SCH (09:45)
[2019-02-22] MEDS: HYDROcodone/Acetaminophen 7.5/325 mg Tablet PO PRN ×2 (09:47→19:25)
[2019-02-22] MEDS ORDERED: Morphine 2 MG/ML SYRINGE SLOW IVP PRN (10:03)
[2019-02-22] MEDS ORDERED: Morphine 4 MG/ML VIAL SLOW IVP PRN (10:03)
--- NOTE | 2019-02-22 10:03 | PDOC.HOSPP ---
- Subjective Encounter Date: 02/22/19 (f/u metastatic cancer) Encounter Time: 10:01 Subjective: Pt this morning states she is tired of fighting,she wants to go home. She c/o headache that is improved with medication. She denies n/v/abd pain. She declined radiation therapy yesterday and states she doesnt want to do it today. - Objective Vital Signs & Weight: Weight Admit Weight 189 lb 3.2 oz Weight 189 lb 3.2 oz I&O: 02/21/19 02/22/19 02/23/19 06:59 06:59 06:59 Intake Total 1100 680 Output Total 550 Balance 550 680 Result Diagrams: 02/22/19 04:04 02/22/19 04:04 ROS - Medication Medications: Active Medications Generic Name Dose Route Start Last Admin Trade Name Freq PRN Reason Stop Dose Admin Hydrocodone Bitart/Acetaminophen 1 tab 02/15/19 10:58 02/15/19 20:15 [place] 7.5/325 PO 1 tab Q4H PRN Administration Mild Pain (1-3) Hydrocodone Bitart/Acetaminophen 2 tab 02/15/19 10:58 02/22/19 09:47 [place] 7.5/325 PO 2 tab Q4H PRN Administration Moderate Pain (4-6) Dexamethasone 4 mg 02/16/19 21:00 02/22/19 09:45 Decadron PO 4 mg BID CHLOÉ Administration Ibuprofen 800 mg 02/15/19 09:33 02/21/19 16:03 Motrin PO 800 mg Q8H PRN Administration Pain Lidocaine 2 patch 02/14/19 17:00 02/21/19 16:46 Lidoderm 5% Patch TD Not Given 1700 [facility] Miscellaneous Medication 1 each 02/15/19 05:00 02/22/19 05:00 Lidocaine Patch Removal TOP Not Given 0500 CHLOÉ Pantoprazole Sodium 40 mg 02/17/19 09:00 02/22/19 09:45 Protonix PO 40 mg DAILY CHLOÉ Administration Polyethylene Glycol 17 gm 02/18/19 09:00 02/22/19 09:45 Miralax PO 17 gm DAILY CHLOÉ Administration Senna/Docusate Sodium 2 tab 02/17/19 21:00 02/22/19 09:45 Senokot S PO 2 tab BID CHLOÉ Administration - Exam NAD General - other findings: awake, responsive, answers questions without difficulty Hosp A/P (1) Metastatic breast carcinoma Code(s): C50.919 - MALIGNANT NEOPLASM OF UNSP SITE OF UNSPECIFIED FEMALE BREAST Status: Acute (2) Anemia Code(s): D64.9 - ANEMIA, UNSPECIFIED Status: Acute Qualifiers: Anemia type: unspecified type Qualified Code(s): D64.9 - Anemia, unspecified (3) Brain metastases Code(s): C79.31 - SECONDARY MALIGNANT NEOPLASM OF BRAIN Status: Acute (4) Hypercalcemia Code(s): E83.52 - HYPERCALCEMIA Status: Resolved - Plan Plan: -Appreciate Pall Care meeting with patient this morning - hospice order placed, request for inpatient and outpatient consideration due to symptom management. - Appreciate Rad Onc and Oncology consults dvt prophy - pt has been refusing scd's and no pharmacologic given abnormality of intracerebral hemorrhage on admission. gi prophy - on PPI due to steroids code status is DNAR reviewed plan of care wiht patient, no questions or further needs at end of eval anticipate discharge when hospice is arranged
--- NOTE | 2019-02-22 10:29 | PRG ---
DATE OF SERVICE: 02/22/2019 Ms. Kuo is a 53-year-old female with widely metastatic breast cancer. She has never received treatment for this. I had visited with her yesterday about her options between starting radiation therapy for her brain metastasis versus supportive care/palliative care with hospice. She had initially decided to pursue radiation therapy, but then when we were to bring her over for simulation, she changed her mind and said she wanted to think about this some more. She wanted to discuss this further with her mom. We had tentatively scheduled her to come and begin her radiation therapy today. I visited with nursing, who informed me that the hospice has been with the patient and the patient's mother and have discussed this option for end-of-life care. Given her poor performance status, hospice care is certainly not unreasonable. I have been informed by nursing that the patient and her mother have decided to pursue hospice care at this time. I instructed the nursing staff to contact me should the patient change her mind. Job ID: [id number]
[2019-02-22] MEDS: Ibuprofen 800 MG TAB PO PRN (19:26)
[2019-02-22 20:29] VITALS: BP 137/76; TEMP 97.6
[2019-02-22] MEDS: Lidocaine 5% Patch TD SCH (20:59)
--- NOTE | 2019-02-23 00:18 | DIS ---
DATE OF ADMISSION: 02/11/2019 DATE OF DISCHARGE: 02/22/2019 CONSULTANTS: 1. Oncology. 2. Radiation Oncology, Dr. Benítez. 3. Palliative Care. DISCHARGE DISPOSITION: [facility] hospice. MEDICATIONS: To continue are; 1. [place] 7.5/325 one or two tablets every 4 hours as needed. 2. Lidocaine patch 2 patches applied for 12 hours and then remove for 12 hours. 3. Zofran ODT 4 mg q.6 hours p.r.n. 4. Protonix 40 mg daily. 5. MiraLAX 17 g daily. 6. Senokot-S 2 tablets twice daily. FINAL DIAGNOSES: 1. Metastatic breast cancer. 2. Hypercalcemia, resolved. 3. Hypokalemia, resolved. 4. Brain metastases with concern of possible intracerebral hemorrhage. 5. Right upper extremity weakness secondary to above. HISTORY OF PRESENT ILLNESS: This is a 53-year-old female with history of right breast mass that was ultimately biopsied a few weeks ago. She was hospitalized and transferred to this facility due to a CT scan that showed multiple metastases and an area concerning for hemorrhage. The patient was found to have widely metastatic disease, severe hypercalcemia, concerns of cellulitis associated with breast mass, and admitted to this facility for that. HOSPITAL COURSE: The patient underwent IV fluid hydration for hypercalcemia. She was started on antibiotics for concern of cellulitis associated with the breast mass. She has been seen by Oncology and Radiation Oncology during this hospitalization with discussion of whole-brain radiation to help manage the brain metastases, as well as initiation of chemotherapy. The patient was set up to go to Radiation Oncology yesterday, however, she declined. She declines again today stating that she is tired and just wants to go home. She demonstrates understanding of the advanced nature of the disease, the palliative intention of radiation therapy as well as with chemotherapy, and states that she is not interested. Due to this, hospice has been contacted and is admitting her to their inpatient facility for management of pain associated with metastatic cancer. PHYSICAL EXAMINATION: Please see the note on the chart. PALOMINO FINDINGS AND TEST RESULTS: Her CBC today 14.1, 8.2, 25.1, 555. Chemistry; 139, 4.3, 110, 21, 8, 0.57, 100. Albumin was 2.3. Her lowest potassium was 2.8 and the initial calcium level was 12.4. DIET: As tolerated. ACTIVITY: As tolerated. CODE STATUS: Do not attempt resuscitation. Reviewed with patient this morning her goals of care which are to stop treatment and to be comfortable to help her symptoms be managed. TIME SPENT: Total time coordinating discharge is 30 minutes. Job ID: [id number]
== END 2019-02-22 19:28 | disposition hospice, inpatient (51) | DRG 55 ==
LOC: ERS 01:09 → 2SE 02:00 → ONC 20:43
PROVIDERS: ADMIT Internal Medicine; ATTEND Internal Medicine
DX: C79.31 Secondary malignant neoplasm of brain (principal); I62.9 Nontraumatic intracranial hemorrhage, unspecified; C79.51 Secondary malignant neoplasm of bone; C78.00 Secondary malignant neoplasm of unspecified lung; C79.70 Secondary malignant neoplasm of unspecified adrenal gland; C79.89 Secondary malignant neoplasm of other specified sites; G81.91 Hemiplegia, unspecified affecting right dominant side; N39.0 Urinary tract infection, site not specified; L03.90 Cellulitis, unspecified; C50.919 Malignant neoplasm of unspecified site of unspecified female breast; Z66 Do not resuscitate; E83.51 Hypocalcemia; E87.6 Hypokalemia; Z51.5 Encounter for palliative care; D63.0 Anemia in neoplastic disease; I10 Essential (primary) hypertension; E83.52 Hypercalcemia; H54.40 Blindness, one eye, unspecified eye; E66.9 Obesity, unspecified; M54.12 Radiculopathy, cervical region; F17.210 Nicotine dependence, cigarettes, uncomplicated; R47.1 Dysarthria and anarthria; Z68.33 Body mass index [BMI] 33.0-33.9, adult
CPT/HCPCS: 36415; 80048; 80053; 80069; 80202; 83735; 85014; 85018; 85025; 85049; 96360; J2270; J2543; J3370; J3480; J3490; J7050; J8540; S0028